=== PATIENT | male | born 1950 | race Caucasian/White ===

== ENCOUNTER 2021-10-03 05:38 | Inpatient (IN) | payer MEDICARE ==
[2021-10-03] MEDS ORDERED: CEFAZOLIN 2 GM-D5W BAG** 2 GM/50 ML ML IV SCH (06:00)
[2021-10-03] MEDS ORDERED: Xylocaine 1% Vial 30 ML PF IJ ONE (06:33)
[2021-10-03] MEDS ORDERED: BUPIVACAINE 0.5% VIAL IJ ONE ×2 (06:33→07:11)
[2021-10-03] MEDS ORDERED: NORCO 5/325 MG PO PRN (08:04)
--- NOTE | 2021-10-03 08:11 | PCM.NOTE ---
Podiatry Post-Op Plan Podiatry Post-Op Plan: Podiatry Post-Op Plan Post-operative plan is as follows: ANTIBIOTICS: Vancomycin 1g q12h, zosyn 3.375g q6h cultures obtained intraoperative will follow up to narrow abx once obtained. PAIN CONTROL: [place] 5/325mg q4h moderate pain. Morphine 2 mg q4h severe pain. Discharge with [place] 5/325mg q6h VTE PROPHYLAXIS: Lovenox 40 mg SubQ daily for anticoag. SCD and compression hose to non op leg. DRESSINGS: Dressing to remain clean and dry. Reinforce with Kerlix/JODY as necessary. ACTIVITY: NWB to operative side. THERAPIES: PT/OT consult for gait training, assistive device training, and assessment of functional status with NWB to the Right. Incentive Spirometry. PLACEMENT: Plan for return to OR tentatively on saturday for DPC and possible muscle Trasnfer. CM consult for evaluation and possible SNF/Rehab placement.
[2021-10-03] MEDS ORDERED: MOTRIN 600 MG PO PRN (08:48)
[2021-10-03] MEDS ORDERED: VASOTEC I.V. 2.5 MG IV PRN (09:51)
[2021-10-03 09:55] LABS: Absolute Neutrophil Ct (ANC) 4.47 (1.4-6.9); BASOPHIL % 0.8 % (0.0-0.4); Basophil (Absolute #) 0.05 (0-0.4); Eosinophil % 6.1 % (0.00-5.0); Eosinophil (Absolute #) 0.38 (0-0.5); Hematocrit 34.9 % (42-50); Lymphocyte (Absolute #) 0.75 (1.0-4.6); Lymphocytes % 12.1 % (24.0-44.0); Mean Cell Volume 89.7 fl (78-100); Mean Corpuscular Hemoglobin 28.3 pg (26-32); Mean Corpuscular Hgb Concent. 31.5 g/dl (32-36); Mean Platelet Volume 11.7 fl (7.5-11.0); Monocyte (Absolute #) 0.57 (0.0-1.3); Monocytes % 9.2 % (0.0-12.0); Neutrophil % 71.8 % (36.0-66.0); Platelet Count 221 K/mm3 (150-450); Red Blood Count 3.89 M/mm3 (4.1-5.6); White Blood Count 6.2 K/mm3 (4.0-10.5)
[2021-10-03] MEDS ORDERED: Ecotrin 325 MG PO SCH (10:00)
[2021-10-03 10:08] LABS: ALBUMIN 4.2 g/dL (3.5-5.0); ALKALINE PHOSPHATASE 74 U/L (38-126); ANION GAP 17.6 MEQ/L (5-15); BLOOD UREA NITROGEN 21 mg/dL (9-20); CHLORIDE 103 mmol/L (98-107); Calcium 9.5 mg/dL (8.4-10.2); Carbon Dioxide 23 mmol/L (22-30); Creatinine 1 1.18 mg/dL (0.66-1.25); EST GLOMERULAR FILTRATION RATE > 60.0 ML/MIN; Glucose 117 mg/dL (74-106); Potassium 5.3 mmol/L (3.5-5.1); SGOT/AST 18 U/L (17-59); SGPT/ALT 13 U/L (0-50); SODIUM 138 mmol/L (137-145); Total Protein 6.6 g/dL (6.3-8.2)
[2021-10-03] MEDS: monoPRIL 10 MG PO SCH (11:34)
[2021-10-03] MEDS: Lopressor 25MG Tab PO SCH ×2 (11:34→21:35)
[2021-10-03] MEDS: SYNTHROID 75 MCG PO SCH (11:36)
[2021-10-03] MEDS: Protonix 40MG Tablet PO SCH (11:36)
[2021-10-03] MEDS: Glucophage XR 500 MG PO SCH ×2 (11:36→21:35)
[2021-10-03] MEDS: ZOCOR 20MG PO SCH (11:36)
[2021-10-03] MEDS: Zosyn 3.375 GM Vial 3.375 GM in Sodium Chloride 100ML MINI-BAG PLUS 100 ML IV SCH ×2 (11:36→17:32)
[2021-10-03] MEDS ORDERED: HUMALOG SQ PRN (12:04)
--- NOTE | 2021-10-03 15:47 | OP ---
SURGERY DATE/TIME: 10/03/2021 0714 PREOPERATIVE DIAGNOSES: 1) Osteomyelitis chronic. 2) Osteomyelitis acute. 3) Diabetic foot infection right foot. 4) Diabetes mellitus type II. POSTOPERATIVE DIAGNOSES: 1) Osteomyelitis chronic. 2) Osteomyelitis acute. 3) Diabetic foot infection right foot. 4) Diabetes mellitus type II. PROCEDURE: Amputation fifth digit and metatarsal amputation of the right foot. SURGEON: Pablo Mayo DPM. JAVA FRONT END WEB DEVELOPER: None. ANESTHESIA: Local. HEMOSTASIS: Pressure dressing. ESTIMATED BLOOD LOSS: Less than 20 cc. MATERIALS: 3-0 Nylon. INJECTABLES: 20 cc of 1:1 mixture of 1% lidocaine plain and 0.5% bupivacaine plain injected in a mini-Leavitt type block fashion. INDICATION FOR SURGERY: Rivas is a very pleasant 71-year-old male who presented to my office for assessment of an ulceration of the fifth metatarsal head. On his initial appointment there was an x-ray that demonstrated significant osteomyelitis of chronic nature with a significant amount of corticolysis and complete erosion of the fifth metatarsal down to the mid diaphyseal shaft as well as the proximal base of the proximal phalanx laterally. Discussion with patient in regards to how long it would take for something to appear this aggressive in the foot demonstrated that the wound had been there for a number of months prior to intervention was seen by another physician who was treating him conservatively. The patient was warned of the potential complications of leaving this wound with the chronic infection could later on result in a larger amputation and possible re-infection of this ulceration whether or not we got the wound resolved. The patient wished to proceed at this time with removing the infected toe as well as the infected portion of the fifth metatarsal. He understands all the risks, benefits and complications of the surgical intervention including but not limited to failure of surgical intervention, delayed wound healing, nonwound healing, possible need for re-intervention in the future which patient understands is part of this procedures plan and indicated at this time and will be staged for a later closure due to the acute infection. The patient understands all of this and wishes to proceed. Following the procedure, the patient will be admitted for IV antibiotics and case management will help to get him into a rehab facility as he has no help at home and is going to have nonweight bearing status to the right foot following his procedure for transportation issues. DESCRIPTION OF PROCEDURE AND FINDINGS: The patient is brought into the OR and placed on the OR table in the supine position. Following this the right lower extremity was prepped and draped to the knee in the typical sterile fashion. Following this 20 cc of a 1:1 mixture of 1% lidocaine plain and 0.5% bupivacaine plain was injected in a mini-Leavitt block type fashion to the right foot. Following this, a 15 blade was utilized to perform a long arm lateral racket around the fifth toe and extending down the base of the fifth metatarsal. The incision was made full thickness for the purpose of vascularity. When incising the skin healthy bleeding was appreciated. At this time the bone was encountered at its proximal extent and disarticulation occurred at the metatarsophalangeal joint and then the soft tissue margins were then cleared of any remaining soft tissue surrounding the proximal aspect of the fifth metatarsal bone. At this point a sagittal saw was utilized to reset the fifth metatarsal base and this was handed off the field along with the fifth digit for microbiological and pathologic assessment. At this time a pulse lavage was utilized to clean the remaining site of any infection or necrosis. Cultures were obtained at this time. Following this a 3-0 Nylon was utilized in a trauma stitch type fashion to coapt the proximal extent and where the fifth toe had been resected leaving a 2 cm gap where packing could be introduced. Betadine soaked 0.25 inch Adaptic was introduced into the deficit and a dressing consisting of Betadine, Adaptic, 4x4, Kerlix and JODY was applied to the right lower extremity under minimal compression. The patient handled the procedure without complication and is planned to be admitted to the floor for IV antibiotics following the procedure and placement into a fpc facility. Postoperative orders as indicated in the patient's inpatient chart.
--- NOTE | 2021-10-03 17:51 | PCM.NOTE ---
Date and Time: 10/03/211748 Subjective Assessment: doing ok - Review of Systems Constitutional: No Fever, No Chills Eyes: No Symptoms Ears, Nose, & Throat: No Symptoms Respiratory: No Cough, No Short Of Breath Cardiac: No Chest Pain, No Edema, No Syncope Abdominal/Gastrointestinal: No Abdominal Pain, No Nausea, No Vomiting, No Diarrhea Genitourinary Symptoms: No Dysuria Musculoskeletal: No Back Pain, No Neck Pain Skin: No Rash Neurological: No Dizziness, No Focal Weakness, No Sensory Changes Psychological: No Symptoms Endocrine: No Symptoms Hematologic/Lymphatic: No Symptoms Immunological/Allergic: No Symptoms Objective Exam General Appearance: no apparent distress, alert Neurologic Exam: alert, oriented x 3, cooperative, normal mood/affect, nml cerebellar function, sensation nml, No motor deficits Skin Exam: normal color, warm, dry Wound Assessment: Skin/Wound Assessment Wound/Incision Assessment Start: 10/03/21 08:51 Text: Status: Active Freq: Q6H Protocol: Document 10/03/21 14:00 RN (Rec: 10/03/21 14:21 RN [id number]) Wound/Incision Assessment Right Foot Wound Assessment Shift Assessment Wound Type Incision Wound Stage Non Pressure Wound Dressing Status Dry & Intact Drainage Amount None Comment Per Dr. Shah's orders- dressing to remain intact until he takes off Wound Photo Photo Taken No Eye Exam: PERRL, EOMI, eyes nml inspection Ears, Nose, Throat Exam: normal ENT inspection, pharynx normal, moist mucous membranes Neck Exam: normal inspection, non-tender, supple, full range of motion Respiratory Exam: normal breath sounds, lungs clear, No respiratory distress Cardiovascular Exam: regular rate/rhythm, normal heart sounds Gastrointestinal/Abdomen Exam: soft, No tenderness, No mass Extremity Exam: normal inspection, normal range of motion Back Exam: normal inspection, normal range of motion, No CVA tenderness, No vertebral tenderness Male Genitalia Exam: deferred Rectal Exam: deferred OBJECTIVE DATA Vital Signs: Vital Signs - 24 hr Temp Pulse Resp BP BP Pulse Ox 10/03/21 17:00 97.9 F 50 L 16 120/56 94 L 10/03/21 11:44 97.5 F 50 L 16 146/67 95 10/03/21 10:02 48 L 183/73 10/03/21 08:35 96.9 F 53 L 16 224/87 98 10/03/21 08:26 96.9 F 53 L 16 98 10/03/21 06:25 97.2 F 57 L 98 10/03/21 06:09 97.2 F 57 L 98 Pain Assessment - Last Documented Pain Intensity 0 Pain Scale Used 0-10 Pain Scale Intake and Output: Intake & Output 10/01/21 10/02/21 10/03/21 10/04/21 11:59 11:59 11:59 11:59 Intake Total 240 380 Output Total 350 Balance -110 380 Weight 69.4 kg 69.4 kg Lab Results: Lab Results-Last 24 Hours 10/03/21 10/03/21 10/03/21 Range/Units 06:28 07:00 08:03 WBC (4.0-10.5) K/mm3 RBC (4.1-5.6) M/mm3 Hgb (12.5-18.0) gm/dl Hct (42-50) % MCV (78-100) fl MCH (26-32) pg MCHC (32-36) g/dl RDW (11.5-14.0) % Plt Count (150-450) K/mm3 MPV (7.5-11.0) fl Gran % (36.0-66.0) % Eos # (Auto) (0-0.5) Absolute Lymphs (auto) (1.0-4.6) Absolute Monos (auto) (0.0-1.3) Lymphocytes % (24.0-44.0) % Monocytes % (0.0-12.0) % Eosinophils % (0.00-5.0) % Basophils % (0.0-0.4) % Absolute Granulocytes (1.4-6.9) Basophils # (0-0.4) ESR 28 H (0-15) mm/hr Sodium (137-145) mmol/L Potassium (3.5-5.1) mmol/L Chloride (98-107) mmol/L Carbon Dioxide (22-30) mmol/L Anion Gap (5-15) MEQ/L BUN (9-20) mg/dL Creatinine (0.66-1.25) mg/dL Estimated GFR ML/MIN Glucose (74-106) mg/dL POC Glucometer 122 H (74 to 106) mg/dL Calcium (8.4-10.2) mg/dL Total Bilirubin (0.2-1.3) mg/dL AST (17-59) U/L ALT (0-50) U/L Alkaline Phosphatase (38-126) U/L Serum Total Protein (6.3-8.2) g/dL Albumin (3.5-5.0) g/dL SARS-CoV-2 (PCR) NEGATIVE (NEGATIVE) 10/03/21 10/03/21 10/03/21 Range/Units 08:15 08:15 16:47 WBC 6.2 (4.0-10.5) K/mm3 RBC 3.89 L (4.1-5.6) M/mm3 Hgb 11.0 L (12.5-18.0) gm/dl Hct 34.9 L (42-50) % MCV 89.7 (78-100) fl MCH 28.3 (26-32) pg MCHC 31.5 L (32-36) g/dl RDW 16.0 H (11.5-14.0) % Plt Count 221 (150-450) K/mm3 MPV 11.7 H (7.5-11.0) fl Gran % 71.8 H (36.0-66.0) % Eos # (Auto) 0.38 (0-0.5) Absolute Lymphs (auto) 0.75 L (1.0-4.6) Absolute Monos (auto) 0.57 (0.0-1.3) Lymphocytes % 12.1 L (24.0-44.0) % Monocytes % 9.2 (0.0-12.0) % Eosinophils % 6.1 H (0.00-5.0) % Basophils % 0.8 (0.0-0.4) % Absolute Granulocytes 4.47 (1.4-6.9) Basophils # 0.05 (0-0.4) ESR (0-15) mm/hr Sodium 138 (137-145) mmol/L Potassium 5.3 H (3.5-5.1) mmol/L Chloride 103 (98-107) mmol/L Carbon Dioxide 23 (22-30) mmol/L Anion Gap 17.6 H (5-15) MEQ/L BUN 21 H (9-20) mg/dL Creatinine 1.18 (0.66-1.25) mg/dL Estimated GFR > 60.0 ML/MIN Glucose 117 H (74-106) mg/dL POC Glucometer 161 H (74 to 106) mg/dL Calcium 9.5 (8.4-10.2) mg/dL Total Bilirubin 0.30 (0.2-1.3) mg/dL AST 18 (17-59) U/L ALT 13 (0-50) U/L Alkaline Phosphatase 74 (38-126) U/L Serum Total Protein 6.6 (6.3-8.2) g/dL Albumin 4.2 (3.5-5.0) g/dL SARS-CoV-2 (PCR) (NEGATIVE) Multi-Disciplinary Progress Notes: Multi-Disciplinary Progress Notes 10/03/21 12:52 Case Management Note by Laura Hilton PATIENT TO CALL FRIEND TO SEE IF THEY CAN BRING IN HIS KNEE SCOOTER TO PRACTICE WITH HERE AT [facility] PRIOR TO DC Initialized on 10/03/21 12:52 - END OF NOTE Assessment/Plan (1) Type 2 diabetes mellitus Current Visit: Yes Status: Acute Qualifiers: Diabetes mellitus director long term care insulin use: without nursing home use Diabetes mellitus complication status: with hyperglycemia Qualified Code(s): E11.65 - Type 2 diabetes mellitus with hyperglycemia (2) Hypertension Current Visit: Yes Status: Acute Qualifiers: Hypertension type: primary hypertension Qualified Code(s): I10 - Essential (primary) hypertension Code(s): I10 - ESSENTIAL (PRIMARY) HYPERTENSION
[2021-10-03] MEDS: Lantus Insulin SQ SCH (21:33)
[2021-10-03] MEDS ORDERED: NON-FORMULARY ITEM (Metformin Hcl [Metformin Er Osmotic] 1,000 MG Tab.Er.24) PO SCH (22:00)
[2021-10-04] MEDS: Zosyn 3.375 GM Vial 3.375 GM in Sodium Chloride 100ML MINI-BAG PLUS 100 ML IV SCH ×5 (00:25→23:56)
--- NOTE | 2021-10-04 08:28 | PCM.NOTE ---
Date and Time: 10/04/21827 Subjective Assessment: doing better - Review of Systems Constitutional: No Fever, No Chills Eyes: No Symptoms Ears, Nose, & Throat: No Symptoms Respiratory: No Cough, No Short Of Breath Cardiac: No Chest Pain, No Edema, No Syncope Abdominal/Gastrointestinal: No Abdominal Pain, No Nausea, No Vomiting, No Diarrhea Genitourinary Symptoms: No Dysuria Musculoskeletal: No Back Pain, No Neck Pain Skin: No Rash Neurological: No Dizziness, No Focal Weakness, No Sensory Changes Psychological: No Symptoms Endocrine: No Symptoms Hematologic/Lymphatic: No Symptoms Immunological/Allergic: No Symptoms Objective Exam General Appearance: no apparent distress, alert Neurologic Exam: alert, oriented x 3, cooperative, normal mood/affect, nml cerebellar function, sensation nml, No motor deficits Skin Exam: normal color, warm, dry Wound Assessment: Skin/Wound Assessment Wound/Incision Assessment Start: 10/03/21 08:51 Text: Status: Active Freq: Q6H Protocol: Document 10/04/21 07:30 RN (Rec: 10/04/21 07:34 RN [id number]) Wound/Incision Assessment Right Foot Wound Assessment Shift Assessment Wound Type Incision Wound Stage Non Pressure Wound Dressing Status Dry & Intact Drainage Amount None Comment Surgical dressing still clean, dry, and intact-not to be removed per Dr. Shah's orders Wound Photo Photo Taken No Eye Exam: PERRL, EOMI, eyes nml inspection Ears, Nose, Throat Exam: normal ENT inspection, pharynx normal, moist mucous membranes Neck Exam: normal inspection, non-tender, supple, full range of motion Respiratory Exam: normal breath sounds, lungs clear, No respiratory distress Cardiovascular Exam: regular rate/rhythm, normal heart sounds Gastrointestinal/Abdomen Exam: soft, No tenderness, No mass Extremity Exam: normal inspection, normal range of motion Back Exam: normal inspection, normal range of motion, No CVA tenderness, No vertebral tenderness Male Genitalia Exam: deferred Rectal Exam: deferred OBJECTIVE DATA Vital Signs: Vital Signs - 24 hr Temp Pulse Resp BP Pulse Ox 10/04/21 07:40 97.7 F 62 16 160/71 94 L 10/04/21 04:20 99.8 F 56 L 20 135/62 95 10/03/21 23:00 98.9 F 57 L 18 153/67 97 10/03/21 17:00 97.9 F 50 L 16 120/56 94 L 10/03/21 11:44 97.5 F 50 L 16 146/67 95 10/03/21 10:02 48 L 183/73 10/03/21 08:35 96.9 F 53 L 16 224/87 98 Pain Assessment - Last Documented Pain Intensity 0 Pain Scale Used 0-10 Pain Scale Intake and Output: Intake & Output 10/01/21 10/02/21 10/03/21 10/04/21 11:59 11:59 11:59 11:59 Intake Total 240 1160 Output Total 350 500 Balance -110 660 Weight 69.4 kg 69.4 kg Lab Results: Lab Results-Last 24 Hours 10/03/21 10/03/21 10/03/21 Range/Units 08:03 08:15 08:15 WBC 6.2 (4.0-10.5) K/mm3 RBC 3.89 L (4.1-5.6) M/mm3 Hgb 11.0 L (12.5-18.0) gm/dl Hct 34.9 L (42-50) % MCV 89.7 (78-100) fl MCH 28.3 (26-32) pg MCHC 31.5 L (32-36) g/dl RDW 16.0 H (11.5-14.0) % Plt Count 221 (150-450) K/mm3 MPV 11.7 H (7.5-11.0) fl Gran % 71.8 H (36.0-66.0) % Eos # (Auto) 0.38 (0-0.5) Absolute Lymphs (auto) 0.75 L (1.0-4.6) Absolute Monos (auto) 0.57 (0.0-1.3) Lymphocytes % 12.1 L (24.0-44.0) % Monocytes % 9.2 (0.0-12.0) % Eosinophils % 6.1 H (0.00-5.0) % Basophils % 0.8 (0.0-0.4) % Absolute Granulocytes 4.47 (1.4-6.9) Basophils # 0.05 (0-0.4) ESR 28 H (0-15) mm/hr Sodium 138 (137-145) mmol/L Potassium 5.3 H (3.5-5.1) mmol/L Chloride 103 (98-107) mmol/L Carbon Dioxide 23 (22-30) mmol/L Anion Gap 17.6 H (5-15) MEQ/L BUN 21 H (9-20) mg/dL Creatinine 1.18 (0.66-1.25) mg/dL Estimated GFR > 60.0 ML/MIN Glucose 117 H (74-106) mg/dL POC Glucometer (74 to 106) mg/dL Calcium 9.5 (8.4-10.2) mg/dL Total Bilirubin 0.30 (0.2-1.3) mg/dL AST 18 (17-59) U/L ALT 13 (0-50) U/L Alkaline Phosphatase 74 (38-126) U/L Serum Total Protein 6.6 (6.3-8.2) g/dL Albumin 4.2 (3.5-5.0) g/dL 10/03/21 10/03/21 10/04/21 Range/Units 16:47 20:51 07:10 WBC (4.0-10.5) K/mm3 RBC (4.1-5.6) M/mm3 Hgb (12.5-18.0) gm/dl Hct (42-50) % MCV (78-100) fl MCH (26-32) pg MCHC (32-36) g/dl RDW (11.5-14.0) % Plt Count (150-450) K/mm3 MPV (7.5-11.0) fl Gran % (36.0-66.0) % Eos # (Auto) (0-0.5) Absolute Lymphs (auto) (1.0-4.6) Absolute Monos (auto) (0.0-1.3) Lymphocytes % (24.0-44.0) % Monocytes % (0.0-12.0) % Eosinophils % (0.00-5.0) % Basophils % (0.0-0.4) % Absolute Granulocytes (1.4-6.9) Basophils # (0-0.4) ESR (0-15) mm/hr Sodium (137-145) mmol/L Potassium (3.5-5.1) mmol/L Chloride (98-107) mmol/L Carbon Dioxide (22-30) mmol/L Anion Gap (5-15) MEQ/L BUN (9-20) mg/dL Creatinine (0.66-1.25) mg/dL Estimated GFR ML/MIN Glucose (74-106) mg/dL POC Glucometer 161 H 112 H 105 (74 to 106) mg/dL Calcium (8.4-10.2) mg/dL Total Bilirubin (0.2-1.3) mg/dL AST (17-59) U/L ALT (0-50) U/L Alkaline Phosphatase (38-126) U/L Serum Total Protein (6.3-8.2) g/dL Albumin (3.5-5.0) g/dL Multi-Disciplinary Progress Notes: Multi-Disciplinary Progress Notes 10/03/21 12:52 Case Management Note by Laura Hilton PATIENT TO CALL FRIEND TO SEE IF THEY CAN BRING IN HIS KNEE SCOOTER TO PRACTICE WITH HERE AT [facility] PRIOR TO DC Initialized on 10/03/21 12:52 - END OF NOTE Assessment/Plan (1) Type 2 diabetes mellitus Current Visit: Yes Status: Acute Qualifiers: Diabetes mellitus snf insulin use: without snf use Diabetes mellitus complication status: with hyperglycemia Qualified Code(s): E11.65 - Type 2 diabetes mellitus with hyperglycemia (2) Hypertension Current Visit: Yes Status: Acute Qualifiers: Hypertension type: primary hypertension Qualified Code(s): I10 - Essential (primary) hypertension Code(s): I10 - ESSENTIAL (PRIMARY) HYPERTENSION
[2021-10-04] MEDS ORDERED: VANCOMYCIN 1 GRAM/200 ML BAG 1 GM/200 ML PIGGYBACK IV SCH (08:30)
[2021-10-04] MEDS: ENOXAPARIN SODIUM SQ SCH (09:35)
[2021-10-04] MEDS: Lopressor 25MG Tab PO SCH ×2 (09:36→21:32)
[2021-10-04] MEDS: Glucophage XR 500 MG PO SCH ×2 (09:36→21:32)
[2021-10-04] MEDS: ZOCOR 20MG PO SCH (09:36)
[2021-10-04] MEDS: SYNTHROID 75 MCG PO SCH (09:36)
[2021-10-04] MEDS: VANCOMYCIN 1.25 GM/250 ML BAG 1.25 GM/250 ML PIGGYBACK IV SCH (09:36)
[2021-10-04] MEDS: Protonix 40MG Tablet PO SCH (09:36)
--- NOTE | 2021-10-04 09:38 | XRAY ---
Indication: Postop exam. Comparison: September 06, 2021. 3 nonweightbearing views right foot demonstrates interval amputation entire 5th toe and mid to distal 5th metatarsal with overlying bandage material. Stable osteopenia, tiny heel spurs, and scattered vascular calcifications. No other bony, articular, or soft tissue abnormalities.
[2021-10-04] MEDS ORDERED: FOSINOPRIL SODIUM 20 MG PO SCH (10:00)
[2021-10-04] MEDS ORDERED: LEVOTHYROXINE SODIUM 75 MCG PO SCH (10:00)
[2021-10-04] MEDS ORDERED: NON-FORMULARY ITEM (Atorvastatin Calcium [Atorvastatin Calcium] 20 MG Tablet) PO SCH (10:00)
[2021-10-04] MEDS ORDERED: NON-FORMULARY ITEM (Omeprazole [Omeprazole] 20 MG Capsule.Dr) PO SCH (10:00)
[2021-10-04] MEDS: monoPRIL 10 MG PO SCH (12:11)
--- NOTE | 2021-10-04 16:15 | PCM.NOTE ---
Date and Time: 10/04/211608 Subjective Assessment: Patient is postop day #1 status post fifth metatarsal amputation and fifth toe amputation to the right foot. Resting comfortably at bedside this afternoon with minimal complaints. He denies any pain. He denies any constitutional symptoms of infection. He denies any other pedal complaints at this time Physical Exam - General General Appearance: no apparent distress, alert - Neuro Neurologic: Other (Absent epicritic and protopathic sensations to the bilateral lower extremity secondary to peripheral neuropathy) - Vascular Peripheral Pulses: Posterior tibialis: 2+, Dorsalis-Pedis: 0 Capillary Refill Time: Immediate Varicosities: Positive Edema: None Skin Temperature: Warm to touch - Muscular Foot Type: pes planu Muscle Strength: 5/5 on all 4 quadrants - Narrative Narrative Physical Exam: Podiatry Physical Exam : Dermatological incision at lateral aspect of right foot coapted utilizing over and over stitches to the proximal extent and distal extent at fifth digit amputation no residual signs of infection at this time with packing pulled. Skin edges blanchable Musculoskeletal exam largely deferred however status post amputation to the right foot lateral aspect fifth digit and proximal aspect of fifth metatarsal. Without pain. Wiggles toes. No calf pain on compression. OBJECTIVE DATA Vital Signs: Vital Signs - 24 hr Temp Pulse Resp BP Pulse Ox 10/04/21 07:40 97.7 F 62 16 160/71 94 L 10/04/21 04:20 99.8 F 56 L 20 135/62 95 10/03/21 23:00 98.9 F 57 L 18 153/67 97 10/03/21 17:00 97.9 F 50 L 16 120/56 94 L Pain Assessment - Last Documented Pain Intensity 0 Pain Scale Used 0-10 Pain Scale Intake and Output: Intake & Output 10/02/21 10/03/21 10/04/21 10/05/21 11:59 11:59 11:59 11:59 Intake Total 240 1400 240 Output Total 350 500 Balance -110 900 240 Weight 69.4 kg 69.4 kg Lab Results: Lab Results-Last 24 Hours 10/03/21 10/03/21 10/03/21 Range/Units 09:00 16:47 20:51 POC Glucometer 161 H 112 H (74 to 106) mg/dL C-Reactive Prot, Quant 1 (0-10) mg/L 10/04/21 10/04/21 Range/Units 07:10 11:49 POC Glucometer 105 144 H (74 to 106) mg/dL C-Reactive Prot, Quant (0-10) mg/L Radiology Exams: Radiology Procedures Category Date Time Status CHEST 1 VIEW (PORTABLE) Urgent Exams 10/04/21 13:32 Taken FOOT (MINIMUM 3 VIEWS) Routine Exams 10/04/21 Completed Multi-Disciplinary Progress Notes: Multi-Disciplinary Progress Notes 10/04/21 13:51 Case Management Note by Laura Hilton S/W PATIENT- HE DOES NOT HAVE ANYONE TO BRING IN HIS KNEE SCOOTER FROM HOME. HE WAS INITIALLY RESISTANT TO REHAB STAY. HOWEVER AFTER PATIENT S/W DR. CARPENTER- PATIENT AGREEABLE. PATIENT HAS NO ASSISTANCE AT HOME, LIVES ALONE, HAS NO LOCAL TRANSPORTATION WHILE RECOVERING. PATIENT WOULD LIKE TO TRY TO GO TO [place] AT [place]. WILL SEND REFERRAL Initialized on 10/04/21 13:51 - END OF NOTE 10/04/21 09:08 Pharmacy Note by Grzegorz Staples Vancomycin dose adjusted per renal dosing policy. Will check trough on 10-07 and adjust dose if needed. Initialized on 10/04/21 09:08 - END OF NOTE Assessment/Plan (1) Osteomyelitis due to type 2 diabetes mellitus Current Visit: Yes Status: Acute Assessment & Plan: Patient examination evaluation. Radiographs reviewed and discussed with patient demonstrating interval amputat ion of the fifth digit as well as the fifth metatarsal to proximal one third diaphysis. Clinical examination today reveals a clean surgical site with out any evidence of remaining infection or necrosis at the skin margins. Patient to continue empiric antibiotic therapy at this time and will narrow spectrum once intraoperative cultures have been finalized Continue postoperative protocol at this time. Plan for return to OR on Saturday, October 06, 2021 for repeat incision and drainage bone debridement muscle flap as well as delayed primary closure Nonweightbearing to the right lower extremity Continue working with case management for discharge to nursing facility Code(s): E11.69 - TYPE 2 DIABETES MELLITUS WITH OTHER SPECIFIED COMPLICATION; M86.9 - OSTEOMYELITIS, UNSPECIFIED (2) Diabetic foot ulcer associated with type 2 diabetes mellitus Current Visit: Yes Status: Acute Qualifiers: Non-pressure ulcer stage: with necrosis of bone Code(s): E11.621 - TYPE 2 DIABETES MELLITUS WITH FOOT ULCER; L97.509 - NON- PRESSURE CHRONIC ULCER OTH PRT UNSP FOOT W UNSP SEVERITY (3) Peripheral neuropathy Current Visit: Yes Status: Acute Qualifiers: Peripheral neuropathy type: polyneuropathy associated with underlying disease Qualified Code(s): G63 - Polyneuropathy in diseases classified elsewhere Code(s): G62.9 - POLYNEUROPATHY, UNSPECIFIED
[2021-10-04] MEDS: Lantus Insulin SQ SCH (21:32)
[2021-10-05] MEDS: Zosyn 3.375 GM Vial 3.375 GM in Sodium Chloride 100ML MINI-BAG PLUS 100 ML IV SCH ×4 (05:33→23:40)
[2021-10-05 05:52] LABS: Creatinine 1 1.4 mg/dL (0.66-1.25); EST GLOMERULAR FILTRATION RATE 53.3 ML/MIN
--- NOTE | 2021-10-05 08:12 | XRAY ---
Indication: longterm placement. Comparison: None Portable chest hyperinflated and clear. Heart borderline enlarged. Bony thorax intact with mild osteopenia and degenerative changes. Impression: Borderline cardiomegaly. Negative for acute pneumonic process or CHF.
--- NOTE | 2021-10-05 08:22 | PCM.NOTE ---
Date and Time: 10/05/21820 - Review of Systems Constitutional: No Fever, No Chills Eyes: No Symptoms Ears, Nose, & Throat: No Symptoms Respiratory: No Cough, No Short Of Breath Cardiac: No Chest Pain, No Edema, No Syncope Abdominal/Gastrointestinal: No Abdominal Pain, No Nausea, No Vomiting, No Diarrhea Genitourinary Symptoms: No Dysuria Musculoskeletal: No Back Pain, No Neck Pain Skin: No Rash Neurological: No Dizziness, No Focal Weakness, No Sensory Changes Psychological: No Symptoms Endocrine: No Symptoms Hematologic/Lymphatic: No Symptoms Immunological/Allergic: No Symptoms Objective Exam General Appearance: no apparent distress, alert Neurologic Exam: alert, oriented x 3, cooperative, normal mood/affect, nml cerebellar function, sensation nml, No motor deficits Skin Exam: normal color, warm, dry Wound Assessment: Skin/Wound Assessment Wound/Incision Assessment Start: 10/03/21 08:51 Text: Status: Active Freq: Q6H Protocol: Document 10/05/21 07:44 RN (Rec: 10/05/21 07:47 RN [id number]) Wound/Incision Assessment Right Foot Wound Assessment Shift Assessment Wound Type Incision Wound Stage Non Pressure Wound Dressing Status Dry & Intact Drainage Amount None Comment Surgical dressing still clean, dry, and intact-not to be removed per Dr. Shah's orders. Some swelling noted to toes on right foot this AM Wound Photo Photo Taken No Eye Exam: PERRL, EOMI, eyes nml inspection Ears, Nose, Throat Exam: normal ENT inspection, pharynx normal, moist mucous membranes Neck Exam: normal inspection, non-tender, supple, full range of motion Respiratory Exam: normal breath sounds, lungs clear, No respiratory distress Cardiovascular Exam: regular rate/rhythm, normal heart sounds Gastrointestinal/Abdomen Exam: soft, No tenderness, No mass Extremity Exam: normal inspection, normal range of motion Back Exam: normal inspection, normal range of motion, No CVA tenderness, No vertebral tenderness Male Genitalia Exam: deferred Rectal Exam: deferred OBJECTIVE DATA Vital Signs: Vital Signs - 24 hr Temp Pulse Resp BP Pulse Ox 10/05/21 04:00 98.8 F 57 L 15 138/63 96 10/05/21 00:00 98.6 F 61 16 154/70 94 L 10/04/21 20:00 98.6 F 67 16 173/70 96 10/04/21 16:31 97.8 F 62 16 179/81 97 Pain Assessment - Last Documented Pain Intensity 0 Pain Scale Used 0-10 Pain Scale Intake and Output: Intake & Output 10/02/21 10/03/21 10/04/21 10/05/21 11:59 11:59 11:59 11:59 Intake Total 240 1400 1190 Output Total 350 500 400 Balance -110 900 790 Weight 69.4 kg 69.4 kg Lab Results: Lab Results-Last 24 Hours 10/03/21 10/04/21 10/04/21 Range/Units 09:00 11:49 16:07 Creatinine (0.66-1.25) mg/dL Estimated GFR ML/MIN POC Glucometer 144 H 97 (74 to 106) mg/dL C-Reactive Prot, Quant 1 (0-10) mg/L 10/04/21 10/05/21 10/05/21 Range/Units 21:12 04:48 07:21 Creatinine 1.40 H (0.66-1.25) mg/dL Estimated GFR 53.3 ML/MIN POC Glucometer 117 H 59 L (74 to 106) mg/dL C-Reactive Prot, Quant (0-10) mg/L Radiology Exams: Radiology Procedures Category Date Time Status CHEST 1 VIEW (PORTABLE) Urgent Exams 10/04/21 13:32 Completed FOOT (MINIMUM 3 VIEWS) Routine Exams 10/04/21 Completed Multi-Disciplinary Progress Notes: Multi-Disciplinary Progress Notes 10/04/21 16:42 Physical Therapy Note by Janessa/lic.[id number] PT. REPORTS NO C/O PN IN L FOOT TODAY. REVIEWED NWB STATUS L LE COST ESTIMATING CLERK REPORTED THAT HE WANTED TO AMBULATE TO BATHROOM VS BEDSIDE COMMODE AND HE HAD DIFFICULTY MAINTAINING NWB STATUS L LE. PT. PERFORMED BED MOBILITY W/ CGA-SBA. STAND- PIVOT TRANSFER TO R W/ MIN-0MOD ASSIST X 1 NWB L LE W/ SW. PIVOT TRANSFER TO L W/ MIN ASSIST X 1. PT. PERFORMED SEATED LE EX'S X 10 REPS SLRS, R ANKLE PUMPS, HEEL SLIDES, AND SUPINE HIP ABD. NO INCREASED PN W/ AROM EX'S L LE. PLAN IS TO RETURN TO [facility] ON 10/06/21 AND THEN D/C HOME W/ HHC. Initialized on 10/04/21 16:42 - END OF NOTE 10/04/21 13:51 Case Management Note by Laura Hilton S/W PATIENT- HE DOES NOT HAVE ANYONE TO BRING IN HIS KNEE SCOOTER FROM HOME. HE WAS INITIALLY RESISTANT TO REHAB STAY. HOWEVER AFTER PATIENT S/W DR. CARPENTER- PATIENT AGREEABLE. PATIENT HAS NO ASSISTANCE AT HOME, LIVES ALONE, HAS NO LOCAL TRANSPORTATION WHILE RECOVERING. PATIENT WOULD LIKE TO TRY TO GO TO [facility] [place]. WILL SEND REFERRAL Initialized on 10/04/21 13:51 - END OF NOTE 10/04/21 09:08 Pharmacy Note by Grzegorz Staples Vancomycin dose adjusted per renal dosing policy. Will check trough on 10-07 and adjust dose if needed. Initialized on 10/04/21 09:08 - END OF NOTE Assessment/Plan (1) Type 2 diabetes mellitus Current Visit: Yes Status: Acute Qualifiers: Diabetes mellitus custodial insulin use: without termite treater helper use Diabetes mellitus complication status: with hyperglycemia Qualified Code(s): E11.65 - Type 2 diabetes mellitus with hyperglycemia (2) Hypertension Current Visit: Yes Status: Acute Qualifiers: Hypertension type: primary hypertension Qualified Code(s): I10 - Essential (primary) hypertension Code(s): I10 - ESSENTIAL (PRIMARY) HYPERTENSION
[2021-10-05] MEDS: VANCOMYCIN 1.25 GM/250 ML BAG 1.25 GM/250 ML PIGGYBACK IV SCH (09:35)
[2021-10-05] MEDS: monoPRIL 10 MG PO SCH (09:36)
[2021-10-05] MEDS: ENOXAPARIN SODIUM SQ SCH (09:36)
[2021-10-05] MEDS: Protonix 40MG Tablet PO SCH (09:36)
[2021-10-05] MEDS: SYNTHROID 75 MCG PO SCH (09:37)
[2021-10-05] MEDS: Lopressor 25MG Tab PO SCH ×2 (09:37→22:49)
[2021-10-05] MEDS: ZOCOR 20MG PO SCH (09:37)
[2021-10-05] MEDS: Glucophage XR 500 MG PO SCH ×2 (11:42→22:50)
[2021-10-05] MEDS: Lantus Insulin SQ SCH (22:50)
[2021-10-06] MEDS: Zosyn 3.375 GM Vial 3.375 GM in Sodium Chloride 100ML MINI-BAG PLUS 100 ML IV SCH ×3 (05:59→17:53)
[2021-10-06 06:06] LABS: Creatinine 1 1.22 mg/dL (0.66-1.25); EST GLOMERULAR FILTRATION RATE > 60.0 ML/MIN
[2021-10-06] MEDS ORDERED: XYLOCAINE 1% HCL 20 ML MDV ONE (06:24)
[2021-10-06] MEDS ORDERED: BUPIVACAINE 0.5% VIAL IJ ONE (06:24)
[2021-10-06] MEDS ORDERED: Sodium Chloride 0.9% 1000 ML 1,000 ML ONE ×2 (06:24→07:26)
[2021-10-06] MEDS: VANCOMYCIN 1.25 GM/250 ML BAG 1.25 GM/250 ML PIGGYBACK IV SCH (09:43)
[2021-10-06] MEDS: ENOXAPARIN SODIUM SQ SCH (09:43)
[2021-10-06] MEDS: Glucophage XR 500 MG PO SCH ×2 (09:44→20:46)
[2021-10-06] MEDS: ZOCOR 20MG PO SCH (09:44)
[2021-10-06] MEDS: Lopressor 25MG Tab PO SCH ×2 (09:44→20:46)
[2021-10-06] MEDS: SYNTHROID 75 MCG PO SCH (09:44)
[2021-10-06] MEDS: monoPRIL 10 MG PO SCH (09:44)
[2021-10-06] MEDS: Protonix 40MG Tablet PO SCH (09:44)
--- NOTE | 2021-10-06 14:16 | OP ---
SURGERY DATE/TIME: 10/06/2021 0833 PREOPERATIVE DIAGNOSES: 1) Acute osteomyelitis. 2) Chronic osteomyelitis. 3) Diabetic foot infection. 4) Diabetes mellitus type II. POSTOPERATIVE DIAGNOSES: 1) Acute osteomyelitis. 2) Chronic osteomyelitis. 3) Diabetic foot infection. 4) Diabetes mellitus type II. PROCEDURES: 1) Repeat incision and drainage with bone debridement. 2) Metatarsal osteotomy. 3) Abductor digiti minimi muscle transfer. 4) Delayed primary closure. SURGEON: Pablo Mayo DPM. MANAGER METROLOGY: None. ANESTHESIA: Local. HEMOSTASIS: Pressure dressing. ESTIMATED BLOOD LOSS: Less than 20 cc. MATERIALS: Bactisure 1,000 ml, [employer], 2-0 Vicryl, 3-0 Nylon. INJECTABLES: 20 cc of 1:1 mixture of 1% lidocaine plain and 0.5% bupivacaine plain injected in a mini-Leavitt type block to the right lower extremity. INDICATION FOR SURGERY: Rivas is a very pleasant 71-year-old male who presented to my office initially with complaints of an ulceration on the lateral aspect of the fifth metatarsal head. X-rays were taken demonstrating significant chronic osteomyelitic changes as well as purulent abscess that was acute in nature at that time. The patient agreed to proceed with surgical incision and drainage of the right foot in order to prevent this from becoming problematic in the future as there has been evidence of destructive changes to the bone as well as the soft tissue surrounding. The patient understands all risks, benefits and complications of the procedure at this time and wishes to proceed. He has already had initial incision and drainage of the abscess prior to this intervention and has been left open for several days prior to returning to the OR as initially intended to proceed with the current operation. DESCRIPTION OF PROCEDURE AND FINDINGS: The patient is brought into the OR and placed on the OR table in supine position. At this time, the right lower extremity was prepped and draped in typical sterile fashion. At this time a 15 blade was utilized to remove the trauma stitches to the lateral aspect of the right foot. Incision was then deepened once again cleaning any sign with blunt and sharp dissection of necrosis or infection. At this time the proximal bone was identified again and a bone rongeur was utilized to remove bone that appeared to be devitalized and necrotic. At this time, sagittal saw was utilized to remove a proximal portion of this space and this was handed off the field for clean margins. At this time attention was then directed to the incision site where copious amounts of Bactisure 1,000 ml was utilized to clean the surgical site and then a 1,000 ml bag of sterile saline was then utilized to flush the site of the acetate. At this time the abductor digiti minimi muscle was identified and mobilized this was then sutured to the periosteum of the remaining proximal fifth metatarsal base. Following this 2-0 Vicryl was then utilized to coapt the surgical site. Skin edges and then 3-0 Nylon was utilized in a horizontal mattress and suture stitch alternating pattern in order to close the surgical wound. At this time the leg was then cleansed with sterile saline. A dressing consisting of Betadine, Adaptic, 4x4, Kerlix and JODY were applied to the right lower extremity. The patient was brought to the postoperative anesthesia care unit with vital signs stable and vascular status intact. The patient handled the procedure as well as the anesthesia without complication. Postoperative orders as indicated in the patient's chart.
[2021-10-06] MEDS: Lantus Insulin SQ SCH (20:45)
[2021-10-07] MEDS: Zosyn 3.375 GM Vial 3.375 GM in Sodium Chloride 100ML MINI-BAG PLUS 100 ML IV SCH ×5 (01:05→23:31)
--- NOTE | 2021-10-07 07:32 | PCM.NOTE ---
Date and Time: 10/07/21729 Subjective Assessment: Patient seen postop day 1 status post repeat incision and drainage bone debridement partial metatarsal amputation abductor digiti minimi muscle transfer and delayed primary closure. Patient sitting in recliner comfortably this a.m. without any overt complaints. Patient is in good mood. He denies any con stitutional symptoms of infection. He denies any other pedal complaints at this time. Physical Exam - Narrative Narrative Physical Exam: Podiatry Physical Exam: Dressings left clean dry and intact status post delayed primary closure at this time. No strikethrough on primary or secondary dressings at this time. Slightly disheveled due to bed rest. Physical exam will be performed on next postoperative visit to avoid iatrogenic infection in the hospital. No dressing changes at this time OBJECTIVE DATA Vital Signs: Vital Signs - 24 hr Temp Pulse Resp BP Pulse Ox 10/07/21 04:34 98.0 F 63 18 158/76 95 10/06/21 23:56 97.7 F 68 18 141/66 96 10/06/21 19:14 97.8 F 63 18 167/73 97 10/06/21 16:17 96.9 F 58 L 16 160/72 97 10/06/21 11:13 97.1 F 59 L 16 114/65 100 10/06/21 09:42 96.0 F 60 16 174/75 99 10/06/21 08:07 97.7 F 55 L 16 161/75 97 Pain Assessment - Last Documented Pain Intensity 0 Pain Scale Used 0-10 Pain Scale Intake and Output: Intake & Output 10/04/21 10/05/21 10/06/21 10/07/21 11:59 11:59 11:59 11:59 Intake Total 1400 1650 2206 1468 Output Total 500 400 Balance 900 1250 2206 1468 Weight 69.4 kg 69.4 kg Lab Results: Lab Results-Last 24 Hours 10/03/21 10/06/21 10/06/21 Range/Units 07:37 11:07 16:02 POC Glucometer 181 H 151 H (74 to 106) mg/dL Surg PTH Diagnosis See Note H 10/06/21 Range/Units 20:35 POC Glucometer 200 H (74 to 106) mg/dL Surg PTH Diagnosis Radiology Exams: Radiology Procedures Category Date Time Status PICC LINE PLACEMENT Urgent Exams 10/09/21 00:00 Ordered Multi-Disciplinary Progress Notes: Multi-Disciplinary Progress Notes 10/06/21 16:18 Physical Therapy Note by Jessica Valentin PHYSICAL THERAPIST ATTEMPTED TO SEE PATIENT TWO TIMES EARLIER TODAY BUT PT REQUESTED BOTH TIMES TO COME BACK LATER. HE HAD SURGERY EARLY THIS MORNING. PT WAS SEEN LATE THIS PM SITTING UP IN HIS CHAIR. HE NOTED HE IS ABLE TO HOP NWB ON THE R LE WITH WALKER BACK AND FOURTH FROM THE BED TO THE BATHROOM. HE NOTES HE ISN'T SUPPOSE TO BE UP INDEPENDENTLY, BUT NOTES HE HAS BEEN. HE DENIES FEELING UNSAFE OR LOSING HIS BALANCE. PT WAS ABLE TO DO SOME SITTING EXERCISES FOR B LE, 10 REPS EACH. PT WAS TOLD TO DO LEG RAISES, KNEE BENDS AND ANKLE PUMPS WHEN IN BED. HE NOTES HE MAY BE HERE IN THE HOSPITAL UNTIL SATURDAY. Initialized on 10/06/21 16:18 - END OF NOTE 10/06/21 15:07 Nutrition Note by Autumn Jeffrey F/u Note: Diet increased to 1800CC with 75-100% po intake. glu 181, adm weight 69.853kg; current weight 69.4kg. goal of po intake >=75% met and ongoing; goal of flu wnl not met and ongoing. Recommend to con't with current diet. Will con't to monitor and f/u prn. T.DENNY Jeffrey Initialized on 10/06/21 15:07 - END OF NOTE 10/06/21 14:03 Case Management Note by Laura Hilton DR.'S NURSE JENNYFER CALLED- HE REVIEWED CULTURES. NEW ORDERS FOR PICC LINE PLACEMENT. ALSO AT DC TO [place] PATIENT WILL NEED TO BE ON [facility] IV [facility]ARMACY TO DOSE FOR 6 WEEKS STARTING FROM 10/04/21, AT [place] TO [place] [facility] (CONTINUE UNTIL THEN). CALLED THIS INFORMATION TO [facility] SO THEY CHECK PRICING AND HOPEFULLY START PRECERT TODAY OR SATURDAY. HOPEFUL FOR DC TO [place] BY MID WEEK NEXT WEEK PATIENT UPDATED ON STATUS AT THIS TIME- AWARE HE WILL LIKELY BE HERE UNTIL MID WEEK NEXT WEEK. PATIENT DOES NOT HAVE ANY TRANSPORTATION FOR OTPT ANTIBIOTIC INFUSIONS. Initialized on 11/19/21 14:03 - END OF NOTE Assessment/Plan (1) Osteomyelitis due to type 2 diabetes mellitus Current Visit: Yes Status: Acute Assessment & Plan: Patient examination evaluation. Radiographs reviewed and discussed with patient demonstrating interval amputation of the fifth digit as well as the fifth metatarsal to proximal one third diaphysis. Patient is progressing without complication status post repeat incision and drainage and bone debridement, partial metatarsal osteotomy abductor digiti minimi muscle transfer and delayed primary closure. Patient has voiced his understanding of the postoperative course at this time. However he does have some hesitations about going to a detention. Preliminary soft tissue culture demonstrating gram-positive cocci. At this time we will discontinue Zosyn 3.375 g every 8 hours and continue the vancomycin 1.25 every 12 hours. Pathological assessment demonstrates no acute osteomyelitis however chronic osteomyelitis is still of concern with no inflammatory process noted. At this time we will proceed with 2 weeks of intravenous antibiotics instead of the 6 weeks as originally anticipated because we are treating chronic osteomyelitis with current soft tissue infection. Awaiting final surgical pathology with clean margins obtained yesterday for final say of 2 weeks versus 6. Patient has made it abundantly clear that he is not interested in going to a nursing facility at this time and would like to proceed with home health care if possible. We will attempt from my office his standpoint to get patient set up with home IV infusions and home health care for dressing changes after the first postoperative week. Patient agrees to this protocol at this time. Patient to remain nonweightbearing to the right lower extremity. On discharge she has his knee scooter for ambulatory assistance. [place] 03/20/2025 every 6 hours for postoperative pain. DVT prophylaxis enoxaparin inpatient. Aspirin 325 mg p.o. daily on discharge. Case management: Patient indecisive however at this time would like to go home. Will attempt home health care and home IV infusions. We will follow Code(s): E11.69 - TYPE 2 DIABETES MELLITUS WITH OTHER SPECIFIED COMPLICATION; M86.9 - OSTEOMYELITIS, UNSPECIFIED (2) Diabetic foot ulcer associated with type 2 diabetes mellitus Current Visit: Yes Status: Acute Qualifiers: Non-pressure ulcer stage: with necrosis of bone Code(s): E11.621 - TYPE 2 DIABETES MELLITUS WITH FOOT ULCER; L97.509 - NON-PRESS URE CHRONIC ULCER OTH PRT UNSP FOOT W UNSP SEVERITY (3) Peripheral neuropathy Current Visit: Yes Status: Acute Qualifiers: Peripheral neuropathy type: polyneuropathy associated with underlying disease Qualified Code(s): G63 - Polyneuropathy in diseases classified elsewhere Code(s): G62.9 - POLYNEUROPATHY, UNSPECIFIED
[2021-10-07] MEDS: ENOXAPARIN SODIUM SQ SCH (09:01)
[2021-10-07] MEDS: Lopressor 25MG Tab PO SCH ×2 (09:02→21:18)
[2021-10-07] MEDS: SYNTHROID 75 MCG PO SCH (09:03)
[2021-10-07] MEDS: ZOCOR 20MG PO SCH (09:03)
[2021-10-07] MEDS: Protonix 40MG Tablet PO SCH (09:03)
[2021-10-07] MEDS: Glucophage XR 500 MG PO SCH ×2 (09:18→21:17)
[2021-10-07] MEDS: monoPRIL 10 MG PO SCH (09:18)
[2021-10-07] MEDS ORDERED: TROUGH DRUG LEVELS IJ ONE (09:30)
[2021-10-07] MEDS: VANCOMYCIN 1.25 GM/250 ML BAG 1.25 GM/250 ML PIGGYBACK IV SCH (09:57)
[2021-10-07] MEDS: APRESOLINE 20 MG/ML INJ IV PRN ×2 (12:44→17:45)
--- NOTE | 2021-10-07 13:11 | PCM.NOTE ---
Date and Time: 10/07/21 1307 Subjective Assessment: Pt has no pain (decreased sensation LE). Antonio po well. Had elevated bp 185-202 systolic today; hydralazine 10mg IV prn ordered and being given by RN. - Review of Systems Constitutional: No Fever Abdominal/Gastrointestinal: No Vomiting Objective Exam General Appearance: no apparent distress, alert Neurologic Exam: oriented x 3, cooperative Skin Exam: normal color, warm, dry, No rash Wound Assessment: Skin/Wound Assessment Wound/Incision Assessment Start: 10/03/21 08:51 Text: Status: Active Freq: Q6H Protocol: Document 10/07/21 08:00 SBD (Rec: 10/07/21 08:22 SBD [id number]) Wound/Incision Assessment Right Foot Wound Assessment Shift Assessment Wound Type Incision Wound Stage Non Pressure Wound Dressing Status Dry & Intact Drainage Amount None Comment Surgical dressing still clean, dry, and intact-not to be removed per Dr. Shah's orders. Wound Photo Photo Taken No Eye Exam: eyes nml inspection Ears, Nose, Throat Exam: moist mucous membranes Neck Exam: normal inspection, non-tender, No lymphadenopathy Respiratory Exam: normal breath sounds, lungs clear, No crackles/rales, No rhonchi, No wheezing Cardiovascular Exam: regular rate/rhythm, normal heart sounds, No murmur Gastrointestinal/Abdomen Exam: normal bowel sounds Extremity Exam: other (R foot dressing in place. Nails thickened and yellow; toes are warm with motion intact LLE no c/c/e) OBJECTIVE DATA Vital Signs: Vital Signs - 24 hr Temp Pulse Resp BP Pulse Ox 10/07/21 12:34 59 L 185/84 98 10/07/21 12:00 97.7 F 61 16 212/90 98 10/07/21 08:37 97.5 F 57 L 18 173/74 97 10/07/21 04:34 98.0 F 63 18 158/76 95 10/06/21 23:56 97.7 F 68 18 141/66 96 10/06/21 19:14 97.8 F 63 18 167/73 97 10/06/21 16:17 96.9 F 58 L 16 160/72 97 Pain Assessment - Last Documented Pain Intensity 0 Pain Scale Used 0-10 Pain Scale Intake and Output: Intake & Output 10/05/21 10/06/21 10/07/2121/21 11:59 11:59 11:59 11:59 Intake Total 1650 2206 1828 Output Total 400 Balance 1250 2206 1828 Weight 69.4 kg Lab Results: Lab Results-Last 24 Hours 10/03/21 10/06/21 10/06/21 Range/Units 07:37 16:02 20:35 POC Glucometer 151 H 200 H (74 to 106) mg/dL Vancomycin Trough (10-20) ug/mL Surg PTH Diagnosis See Note H 10/07/21 10/07/21 10/07/21 Range/Units 07:33 09:25 11:46 POC Glucometer 87 135 H (74 to 106) mg/dL Vancomycin Trough 9.65 L (10-20) ug/mL Surg PTH Diagnosis Radiology Exams: Radiology Procedures Category Date Time Status PICC LINE PLACEMENT Urgent Exams 10/09/21 00:00 Ordered Multi-Disciplinary Progress Notes: Multi-Disciplinary Progress Notes 10/06/21 16:18 Physical Therapy Note by Jessica Valentin PHYSICAL THERAPIST ATTEMPTED TO SEE PATIENT TWO TIMES EARLIER TODAY BUT PT REQUESTED BOTH TIMES TO COME BACK LATER. HE HAD SURGERY EARLY THIS MORNING. PT WAS SEEN LATE THIS PM SITTING UP IN HIS CHAIR. HE NOTED HE IS ABLE TO HOP NWB ON THE R LE WITH WALKER BACK AND FOURTH FROM THE BED TO THE BATHROOM. HE NOTES HE ISN'T SUPPOSE TO BE UP INDEPENDENTLY, BUT NOTES HE HAS BEEN. HE DENIES FEELING UNSAFE OR LOSING HIS BALANCE. PT WAS ABLE TO DO SOME SITTING EXERCISES FOR B LE, 10 REPS EACH. PT WAS TOLD TO DO LEG RAISES, KNEE BENDS AND ANKLE PUMPS WHEN IN BED. HE NOTES HE MAY BE HERE IN THE HOSPITAL UNTIL SATURDAY. Initialized on 10/06/21 16:18 - END OF NOTE 10/06/21 15:07 Nutrition Note by Autumn Jeffrey F/u Note: Diet increased to 1800CC with 75-100% po intake. glu 181, adm weight 69.853kg; current weight 69.4kg. goal of po intake >=75% met and ongoing; goal of flu wnl not met and ongoing. Recommend to con't with current diet. Will con't to monitor and f/u prn. T.DENNY Jeffrey Initialized on 10/06/21 15:07 - END OF NOTE 10/06/21 14:03 Case Management Note by Laura Hilton DR.'S NURSE JENNYFER BROOKS- HE REVIEWED CULTURES. NEW ORDERS FOR PICC LINE PLACEMENT. ALSO AT DC TO [place] PATIENT WILL NEED TO BE ON [facility] IV PHARMACY TO DOSE FOR 6 WEEKS STARTING FROM 10/04/21, AT DC TO ALF- [place] ZOSYN (CONTINUE UNTIL THEN). CALLED THIS INFORMATION TO [facility]IR[facility] SO THEY CHECK PRICING AND HOPEFULLY START PRECERT TODAY OR SATURDAY. HOPEFUL FOR DC TO [place] BY MID WEEK NEXT WEEK PATIENT UPDATED ON STATUS AT THIS TIME- AWARE HE WILL LIKELY BE HERE UNTIL MID WEEK NEXT WEEK. PATIENT DOES NOT HAVE ANY TRANSPORTATION FOR OTPT ANTIBIOTIC INFUSIONS. Initialized on 10/06/21 14:03 - END OF NOTE Assessment/Plan (1) Osteomyelitis due to type 2 diabetes mellitus Current Visit: Yes Status: Acute Assessment & Plan: Pt is on IV zosyn and vancomycin. POD #[address] Shah - jazmyn RN, he plans to keep pt here until Saturday, by which time he will arrange IV antibiotics at home. Pt no longer planning on SNF. Code(s): E11.69 - TYPE 2 DIABETES MELLITUS WITH OTHER SPECIFIED COMPLICATION; M86.9 - OSTEOMYELITIS, UNSPECIFIED (2) Hypertension Current Visit: Yes Status: Chronic Qualifiers: Hypertension type: primary hypertension Qualified Code(s): I10 - Essential (primary) hypertension Assessment & Plan: Worse today - will only add prn hydralazine for now as do not want to add to his home meds and potentially cause hypotension after discharge. Code(s): I10 - ESSENTIAL (PRIMARY) HYPERTENSION (3) Type 2 diabetes mellitus Current Visit: Yes Status: Chronic Qualifiers: Diabetes mellitus fdc insulin use: without terminal block assembler use Diabetes mellitus complication status: with hyperglycemia Qualified Code(s): E11.65 - Type 2 diabetes mellitus with hyperglycemia
[2021-10-07] MEDS: Lantus Insulin SQ SCH (21:18)
[2021-10-07] MEDS: Acidophilus TABLET PO SCH (21:18)
[2021-10-08] MEDS: Zosyn 3.375 GM Vial 3.375 GM in Sodium Chloride 100ML MINI-BAG PLUS 100 ML IV SCH ×4 (06:33→23:16)
[2021-10-08] MEDS: ENOXAPARIN SODIUM SQ SCH (08:55)
[2021-10-08] MEDS: monoPRIL 10 MG PO SCH (08:56)
[2021-10-08] MEDS: Glucophage XR 500 MG PO SCH ×2 (08:56→21:24)
[2021-10-08] MEDS: Lopressor 25MG Tab PO SCH (08:56)
[2021-10-08] MEDS: Acidophilus TABLET PO SCH ×3 (08:56→21:24)
[2021-10-08] MEDS: SYNTHROID 75 MCG PO SCH (08:56)
[2021-10-08] MEDS: ZOCOR 20MG PO SCH (08:56)
[2021-10-08] MEDS: Protonix 40MG Tablet PO SCH (08:56)
[2021-10-08] MEDS: VANCOMYCIN 1.25 GM/250 ML BAG 1.25 GM/250 ML PIGGYBACK IV SCH (09:39)
[2021-10-08] MEDS: APRESOLINE 20 MG/ML INJ IV PRN ×2 (11:55→16:44)
--- NOTE | 2021-10-08 15:50 | PCM.NOTE ---
Date and Time: 10/08/21 1547 Subjective Assessment: Pt's bp from 131-207/63-90 in the past 24h. Pt states he has always had a hard time controlling his BP. Antonio po. up with walker. - Review of Systems Constitutional: No Fever Abdominal/Gastrointestinal: No Vomiting Objective Exam General Appearance: no apparent distress, alert, other (standing at sink; walks with walker to sit in chair) Neurologic Exam: oriented x 3, cooperative Skin Exam: warm, dry, No rash Wound Assessment: Skin/Wound Assessment Wound/Incision Assessment Start: 10/03/21 08:51 Text: Status: Active Freq: Q6H Protocol: Document 10/08/21 14:00 TS (Rec: 10/08/21 14:54 TS [id number]) Wound/Incision Assessment Right Foot Wound Assessment Shift Assessment Wound Type Incision Wound Stage Non Pressure Wound Dressing Status Dry & Intact Drainage Amount None Comment Surgical dressing still clean, dry, and intact-not to be removed per Dr. Shah's orders. Wound Photo Photo Taken No Eye Exam: eyes nml inspection Ears, Nose, Throat Exam: moist mucous membranes Neck Exam: normal inspection Respiratory Exam: normal breath sounds, lungs clear, No crackles/rales, No rhonchi, No wheezing Cardiovascular Exam: regular rate/rhythm, normal heart sounds, No murmur Extremity Exam: other (R foot wrapped) OBJECTIVE DATA Vital Signs: Vital Signs - 24 hr Temp Pulse Resp BP Pulse Ox 10/08/21 11:00 97.7 F 61 16 202/84 100 10/08/21 07:00 97.8 F 60 18 175/76 97 10/08/21 03:30 98.9 F 57 L 16 146/67 97 10/07/21 23:00 98.0 F 68 18 142/63 98 10/07/21 19:35 97.7 F 71 20 146/67 98 10/07/21 19:06 71 131/60 98 10/07/21 16:00 97.8 F 62 16 207/82 97 Pain Assessment - Last Documented Pain Intensity 0 Pain Scale Used 0-10 Pain Scale Intake and Output: Intake & Output 10/06/21 10/07/21 10/08/21 10/09/21 11:59 11:59 11:59 11:59 Intake Total 2206 1828 3094 240 Balance 2206 1828 3094 240 Weight 69.4 kg Lab Results: Lab Results-Last 24 Hours 10/07/21 10/07/21 10/08/21 Range/Units 17:11 20:53 07:15 POC Glucometer 113 H 213 H 61 L (74 to 106) mg/dL 10/08/21 10/08/21 Range/Units 08:03 11:27 POC Glucometer 136 H 122 H (74 to 106) mg/dL Radiology Exams: Radiology Procedures Category Date Time Status PICC LINE PLACEMENT Urgent Exams 10/09/21 00:00 Ordered Assessment/Plan (1) Osteomyelitis due to type 2 diabetes mellitus Current Visit: Yes Status: Acute Assessment & Plan: Dr. Shah following. Code(s): E11.69 - TYPE 2 DIABETES MELLITUS WITH OTHER SPECIFIED COMPLICATION; M86.9 - OSTEOMYELITIS, UNSPECIFIED (2) Hypertension Current Visit: Yes Status: Chronic Qualifiers: Hypertension type: primary hypertension Qualified Code(s): I10 - Essential (primary) hypertension Assessment & Plan: increased toprol from 25mg po BID to 50mg po BID. Discussed with pt that want to avoid hypotension, but his BP have been quite high here intermittently. Code(s): I10 - ESSENTIAL (PRIMARY) HYPERTENSION (3) Type 2 diabetes mellitus Current Visit: Yes Status: Chronic Qualifiers: Diabetes mellitus stitcher operator insulin use: without stitcher operator use Diabetes mellitus complication status: with hyperglycemia Qualified Code(s): E11.65 - Type 2 diabetes mellitus with hyperglycemia Assessment & Plan: BS [id number].
[2021-10-08] MEDS: Lantus Insulin SQ SCH (21:24)
[2021-10-08] MEDS: Lopressor 50 MG PO SCH (21:25)
[2021-10-09] MEDS: Zosyn 3.375 GM Vial 3.375 GM in Sodium Chloride 100ML MINI-BAG PLUS 100 ML IV SCH (05:33)
[2021-10-09 08:32] LABS: Absolute Neutrophil Ct (ANC) 5.86 (1.4-6.9); BASOPHIL % 0.5 % (0.0-0.4); Basophil (Absolute #) 0.04 (0-0.4); Eosinophil % 6.5 % (0.00-5.0); Eosinophil (Absolute #) 0.51 (0-0.5); Hematocrit 29.8 % (42-50); Hemoglobin 9.3 gm/dl (12.5-18.0); Lymphocyte (Absolute #) 0.69 (1.0-4.6); Lymphocytes % 8.8 % (24.0-44.0); Mean Corpuscular Hemoglobin 28.1 pg (26-32); Mean Corpuscular Hgb Concent. 31.2 g/dl (32-36); Mean Platelet Volume 11.5 fl (7.5-11.0); Monocyte (Absolute #) 0.72 (0.0-1.3); Monocytes % 9.2 % (0.0-12.0); Platelet Count 213 K/mm3 (150-450); Red Blood Count 3.31 M/mm3 (4.1-5.6); Red Cell Distribution Width 16.2 % (11.5-14.0); White Blood Count 7.8 K/mm3 (4.0-10.5)
[2021-10-09] MEDS: monoPRIL 10 MG PO SCH (08:54)
[2021-10-09] MEDS: Acidophilus TABLET PO SCH ×2 (08:54→14:57)
[2021-10-09] MEDS: Lopressor 50 MG PO SCH (08:55)
[2021-10-09] MEDS: Protonix 40MG Tablet PO SCH (08:55)
[2021-10-09] MEDS: SYNTHROID 75 MCG PO SCH (08:55)
[2021-10-09] MEDS: ZOCOR 20MG PO SCH (08:55)
[2021-10-09 09:21] LABS: ALBUMIN 3.8 g/dL (3.5-5.0); ALKALINE PHOSPHATASE 43 U/L (38-126); BLOOD UREA NITROGEN 12 mg/dL (9-20); CHLORIDE 108 mmol/L (98-107); Calcium 9.1 mg/dL (8.4-10.2); Carbon Dioxide 21 mmol/L (22-30); Creatinine 1 1.19 mg/dL (0.66-1.25); EST GLOMERULAR FILTRATION RATE > 60.0 ML/MIN; Glucose 78 mg/dL (74-106); Potassium 4.5 mmol/L (3.5-5.1); SGOT/AST 22 U/L (17-59); SGPT/ALT 12 U/L (0-50); SODIUM 140 mmol/L (137-145); Total Protein 6.5 g/dL (6.3-8.2)
[2021-10-09] MEDS ORDERED: TROUGH DRUG LEVELS IJ ONE (09:30)
[2021-10-09 10:48] LABS: INR 1.07 (0.8-3.0); PROTIME 12.6 SECONDS (9.4-12.5)
[2021-10-09] MEDS: VANCOMYCIN 1.25 GM/250 ML BAG 1.25 GM/250 ML PIGGYBACK IV SCH (11:32)
[2021-10-09] MEDS: Glucophage XR 500 MG PO SCH (12:40)
[2021-10-09] MEDS: ENOXAPARIN SODIUM SQ SCH (12:40)
[2021-10-09 16:11] VITALS: BP 197/81; PULSE 55; O2SAT 97
--- NOTE | 2021-10-09 16:45 | PCM.NOTE ---
Date and Time: 10/09/21 164 Subjective Assessment: Patient seen at bedside postop day 3. Sitting comfortably in recliner. No complaints of pain. He currently denies any constitutional symptoms of infection. He denies any other pedal complaints at this time Physical Exam - General General Appearance: no apparent distress - Neuro Neurologic: Other (Absent epicritic and protopathic sensations) - Vascular Peripheral Pulses: Posterior tibialis: 1+, Dorsalis-Pedis: 1+ Capillary Refill Time: Immediate Varicosities: Negtive Edema: None - Muscular Muscle Strength: 5/5 on all 4 quadrants Digital Deformity: hammer toe Equinus: Gastorocnemius equinus - Narrative Narrative Physical Exam: Podiatry Physical Exam Dermatological exam: Constitutionally no strikethrough on secondary dressing. Final dressing with minimal strikethrough. Dressing removed revealing a coapt surgical site. No active bleeding. No residual signs of infection. No signs of dehiscence of surgical wound. Skin edges are blanchable. Musculoskeletal exam: Wiggles toes. Compartments soft and compressible OBJECTIVE DATA Vital Signs: Vital Signs - 24 hr Temp Pulse Resp BP Pulse Ox 10/09/21 13:00 98.1 F 55 L 16 197/81 97 10/09/21 07:43 98.9 F 80 16 159/72 97 10/09/21 05:00 98.1 F 69 18 185/72 95 10/08/21 23:00 98.7 F 58 L 20 143/65 96 10/08/21 19:00 97.7 F 72 18 150/70 99 Pain Assessment - Last Documented Pain Intensity 0 Pain Scale Used 0-10 Pain Scale Intake and Output: Intake & Output 10/07/21 10/08/21 10/09/21 10/10/21 11:59 11:59 11:59 11:59 Intake Total 1828 3094 2210 480 Output Total 450 Balance 1828 3094 2210 30 Lab Results: Lab Results-Last 24 Hours 10/08/21 10/09/21 10/09/21 Range/Units 20:40 05:23 07:25 WBC (4.0-10.5) K/mm3 RBC (4.1-5.6) M/mm3 Hgb (12.5-18.0) gm/dl Hct (42-50) % MCV (78-100) fl MCH (26-32) pg MCHC (32-36) g/dl RDW (11.5-14.0) % Plt Count (150-450) K/mm3 MPV (7.5-11.0) fl Gran % (36.0-66.0) % Eos # (Auto) (0-0.5) Absolute Lymphs (auto) (1.0-4.6) Absolute Monos (auto) (0.0-1.3) Lymphocytes % (24.0-44.0) % Monocytes % (0.0-12.0) % Eosinophils % (0.00-5.0) % Basophils % (0.0-0.4) % Absolute Granulocytes (1.4-6.9) Basophils # (0-0.4) PT (9.4-12.5) SECONDS INR (0.8-3.0) Sodium (137-145) mmol/L Potassium (3.5-5.1) mmol/L Chloride (98-107) mmol/L Carbon Dioxide (22-30) mmol/L Anion Gap (5-15) MEQ/L BUN (9-20) mg/dL Creatinine (0.66-1.25) mg/dL Estimated GFR ML/MIN Glucose (74-106) mg/dL POC Glucometer 203 H 66 L 81 (74 to 106) mg/dL Calcium (8.4-10.2) mg/dL Total Bilirubin (0.2-1.3) mg/dL AST (17-59) U/L ALT (0-50) U/L Alkaline Phosphatase (38-126) U/L Serum Total Protein (6.3-8.2) g/dL Albumin (3.5-5.0) g/dL Vancomycin Trough (10-20) ug/mL 10/09/21 10/09/21 10/09/21 Range/Units 08:05 08:05 08:48 WBC 7.8 (4.0-10.5) K/mm3 RBC 3.31 L (4.1-5.6) M/mm3 Hgb 9.3 L (12.5-18.0) gm/dl Hct 29.8 L (42-50) % MCV 90.0 (78-100) fl MCH 28.1 (26-32) pg MCHC 31.2 L (32-36) g/dl RDW 16.2 H (11.5-14.0) % Plt Count 213 (150-450) K/mm3 MPV 11.5 H (7.5-11.0) fl Gran % 75.0 H (36.0-66.0) % Eos # (Auto) 0.51 H (0-0.5) Absolute Lymphs (auto) 0.69 L (1.0-4.6) Absolute Monos (auto) 0.72 (0.0-1.3) Lymphocytes % 8.8 L (24.0-44.0) % Monocytes % 9.2 (0.0-12.0) % Eosinophils % 6.5 H (0.00-5.0) % Basophils % 0.5 (0.0-0.4) % Absolute Granulocytes 5.86 (1.4-6.9) Basophils # 0.04 (0-0.4) PT (9.4-12.5) SECONDS INR (0.8-3.0) Sodium 140 (137-145) mmol/L Potassium 4.5 (3.5-5.1) mmol/L Chloride 108 H (98-107) mmol/L Carbon Dioxide 21 L (22-30) mmol/L Anion Gap 15.0 (5-15) MEQ/L BUN 12 (9-20) mg/dL Creatinine 1.19 (0.66-1.25) mg/dL Estimated GFR > 60.0 ML/MIN Glucose 78 (74-106) mg/dL POC Glucometer (74 to 106) mg/dL Calcium 9.1 (8.4-10.2) mg/dL Total Bilirubin 0.40 (0.2-1.3) mg/dL AST 22 (17-59) U/L ALT 12 (0-50) U/L Alkaline Phosphatase 43 (38-126) U/L Serum Total Protein 6.5 (6.3-8.2) g/dL Albumin 3.8 (3.5-5.0) g/dL Vancomycin Trough 11.16 (10-20) ug/mL 10/09/21 10/09/21 Range/Units 10:35 11:40 WBC (4.0-10.5) K/mm3 RBC (4.1-5.6) M/mm3 Hgb (12.5-18.0) gm/dl Hct (42-50) % MCV (78-100) fl MCH (26-32) pg MCHC (32-36) g/dl RDW (11.5-14.0) % Plt Count (150-450) K/mm3 MPV (7.5-11.0) fl Gran % (36.0-66.0) % Eos # (Auto) (0-0.5) Absolute Lymphs (auto) (1.0-4.6) Absolute Monos (auto) (0.0-1.3) Lymphocytes % (24.0-44.0) % Monocytes % (0.0-12.0) % Eosinophils % (0.00-5.0) % Basophils % (0.0-0.4) % Absolute Granulocytes (1.4-6.9) Basophils # (0-0.4) PT 12.6 H (9.4-12.5) SECONDS INR 1.07 (0.8-3.0) Sodium (137-145) mmol/L Potassium (3.5-5.1) mmol/L Chloride (98-107) mmol/L Carbon Dioxide (22-30) mmol/L Anion Gap (5-15) MEQ/L BUN (9-20) mg/dL Creatinine (0.66-1.25) mg/dL Estimated GFR ML/MIN Glucose (74-106) mg/dL POC Glucometer 75 (74 to 106) mg/dL Calcium (8.4-10.2) mg/dL Total Bilirubin (0.2-1.3) mg/dL AST (17-59) U/L ALT (0-50) U/L Alkaline Phosphatase (38-126) U/L Serum Total Protein (6.3-8.2) g/dL Albumin (3.5-5.0) g/dL Vancomycin Trough (10-20) ug/mL Multi-Disciplinary Progress Notes: Multi-Disciplinary Progress Notes 10/09/21 16:17 Physical Therapy Note by Audrey Barros 10/09/21: PT WAS SEEN THIS AM IN HIS ROOM. UPON ARRIVAL TO PT'S ROOM, PT WAS SITTING IN BEDSIDE CHAIR. HE REPORTED 0 PAIN IN R FOOT ON A 0 TO 10 PAIN SCALE, 10 = EXTREME PAIN. PT TRANSFERRED SIT TO STAND INDEP, HE AMBULATED ~ 25', NWB ON R WITH WALKER AND CCG X 1. PT ABLE TO PERFORM STANDING AND SITTING R LE EX'S WITHOUT DIFFICULTY OR C/O PAIN. PT RETURNED TO BEDSIDE CHAIR AFTER COMPLETING RX. Initialized on 10/09/21 16:17 - END OF NOTE 10/09/21 15:12 Case Management Note by Laura Hilton REFERRAL FOR SERVICES WAS FAXED TO [facility]. THEY ARE AWARE PATIENT IS DCING HOME TODAY. THEY WILL NEED FAXED THE DC INSTRUCTIONS, DC MED LIST, DC SUMMARY (IF AVAILABLE) TO [phone] Initialized on 10/09/21 15:12 - END OF NOTE 10/09/21 14:03 Case Management Note by Laura Hilton [facility] HAS NO STAFF FOR REFERRAL, [place] [facility] IN NOT IN NETWORK, [facility] HAS NO [place] STAFF, [facility] NOT TAKING ANY NEW REFERRALS, REFERRAL FAXED TO [facility] AT THIS TIME Initialized on 10/09/21 14:03 - END OF NOTE 10/09/21 13:27 Case Management Note by Laura Hilton UNABLE TO TAKE PATIENT ON IV ANTIBIOTICS, MMM UNABLE TO TAKE PATIENT. WHEN UPDATING PATIENT ON THIS- PATIENT ASKING WHY HE CAN'T RETURN HOME WITH PO ANTIBIOTICS FOR HIS LEG. I S/W DR. SINGLETARY- HE IS ACTUALLY AGREEABLE TO THIS PLAN NOW THAT CULTURES ARE BACK. PATIENT CAN DC HOME TODAY ON PO ANTIBIOTICS. PATIENT REPORTS HE FEELS COMFORTABLE USING HIS KNEE SCOOTER AT HOME. REPORTS HIS SISTERS WILL PROVIDE HIM TRANSPORTATION FOR DC HOME AND FOLLOW UP VISITS. WILL ARRANGE FOR [facility] TO ASSIST IN MONITORING PATIENT AT HOME SINCE HE HAS NO ASSISTANCE OR HELP Initialized on 10/09/21 13:27 - END OF NOTE 10/09/21 09:17 Case Management Note by Laura Hilton DR. MENTIONED AT HOME ANTIBIOTIC INFUSIONS TO PATIENT THIS WEEKEND. PATIENT BEFORE HAS STATED HE IS UNCOMFORTABLE WITH DOING ANYTHING WITH HIS IV. I WENT AND S/W PATIENT AGAIN THIS AM. HE WAS NOTIFIED THAT [facility] WILL WANT TO TEACH HIM OR SOMEONE ELSE HOW TO GIVE THE INFUSIONS. THEY WON'T BE THERE EVER DAY TO DO THEM FOR HIM. PATIENT HAS NO ONE [facility] CAN TEACH EITHER. AFTER CONSIDERATION- PATIENT WOULD LIKE TO CONTINUE TO GO TO THE HALF-WAY HE ALSO HAS NO TRANSPORTATION FOR OTPT INFUSIONS Initialized on 10/09/21 09:17 - END OF NOTE Assessment/Plan (1) Osteomyelitis due to type 2 diabetes mellitus Current Visit: Yes Status: Acute Assessment & Plan: Patient examination evaluation. Radiographs reviewed and discussed with patient demonstrating interval amputation of the fifth digit as well as the fifth metatarsal to proximal one third diaphysis. Patient is progressing without complication status post repeat incision and drainage and bone debridement, partial metatarsal osteotomy abductor digiti minimi muscle transfer and delayed primary closure. Patient has voiced his understanding of the postoperative course at this time. Patient no longer wants to proceed with going to a skilled nursing and indicates that he is capable of caring for himself at home. Patient will be going home with p.o. antibiotics as Zyvox 600 mg twice daily for 10 days As patient is growing MRSA equivalent Patient to remain nonweightbearing to the right lower extremity. On discharge she has his knee scooter for ambulatory assistance. [place] 03/20/2025 every 6 hours for postoperative pain. Aspirin 325 mg p.o. daily on discharge. Case management: Patient indecisive however at this time would like to go home. Discharge per medicine at this time Code(s): E11.69 - TYPE 2 DIABETES MELLITUS WITH OTHER SPECIFIED COMPLICATION; M86.9 - OSTEOMYELITIS, UNSPECIFIED (2) Diabetic foot ulcer associated with type 2 diabetes mellitus Current Visit: Yes Status: Acute Qualifiers: Non-pressure ulcer stage: with necrosis of bone Code(s): E11.621 - TYPE 2 DIABETES MELLITUS WITH FOOT ULCER; L97.509 - NON- PRESSURE CHRONIC ULCER OTH PRT UNSP FOOT W UNSP SEVERITY (3) Peripheral neuropathy Current Visit: Yes Status: Acute Qualifiers: Peripheral neuropathy type: polyneuropathy associated with underlying disease Qualified Code(s): G63 - Polyneuropathy in diseases classified elsewhere Code(s): G62.9 - POLYNEUROPATHY, UNSPECIFIED
--- NOTE | 2021-10-09 20:35 | PCM.DS ---
Discharge Summary Date of Admission: 10/03/21 05:38 Admitting Physician: JOSELYN CARPENTER Primary Care Provider: GEOFFREY OROSCO Allergies Allergies No Known Drug Allergies Allergy (Verified 10/03/21 06:20) Hospital Summary - Hospital Course Hospital Course: Chief Complaint Diagnosis FIFTH TOE AND METATARSAL AMPUTATION R FOOT Allergies Allergy/AdvReac Type Severity Reaction Status Date / Time No Known Drug Allergies Allergy Verified 10/03/21 06:20 Vital Signs (Last 24 hours) Temp Pulse Resp BP Pulse Ox 10/09/21 13:00 98.1 F 55 L 16 197/81 97 10/09/21 07:43 98.9 F 80 16 159/72 97 10/09/21 05:00 98.1 F 69 18 185/72 95 10/08/21 23:00 98.7 F 58 L 20 143/65 96 Home Medications Medication Instructions Recorded Confirmed Last Taken Type Atorvastatin Calcium 20 mg PO DAILY 09/25/21 10/03/21 10/03/21 History Fosinopril Sodium [Monopril] 30 mg PO DAILY 09/25/21 10/03/21 10/03/21 History Insulin Glargine,Hum.rec.anlog 23 units SQ QHS 09/25/21 10/03/21 10/02/21 History [Lantus] Levothyroxine Sodium 75 mcg PO DAILY 09/25/21 10/03/21 10/02/21 History [Levothyroxine] Metformin HCl [Metformin ER 1,000 mg PO BID 09/25/21 10/03/21 10/02/21 History Osmotic] Metoprolol Tartrate 25 mg PO BID 09/25/21 10/03/21 10/03/21 History Omeprazole 20 mg PO DAILY 09/25/21 10/03/21 10/03/21 History Lactobacillus Acidophilus 1 tab PO TID 30 Days #90 tablet 10/09/21 Unknown Rx [Acidophilus TABLET] Metoprolol Tartrate 50 mg 50 mg PO BID 30 Days #60 tablet 10/09/21 Unknown Rx [Lopressor 50 MG] Current Medications Discontinued Medications Generic Name Dose Route Start Last Admin Trade Name Freq PRN Reason Stop Dose Admin Hydrocodone Bitart/Acetaminophen 1 tab 10/03/21 08:04 10/03/21 09:45 Hydrocodone/Apap 5/325 Mg Tablet PO 10/08/21 08:03 1 tab QID PRN PRN Administration PAIN Aspirin 325 mg 10/03/21 10:00 10/03/21 09:45 Aspirin 325 Mg Tablet.Ec PO 11/02/21 09:59 325 mg DAILY AGUSTINA Administration Bupivacaine HCl Confirm 10/03/21 06:33 Bupivacaine Hcl/Pf 50 Mg/10 Ml Vial Administered 10/03/21 06:34 Dose 50 mg IJ .STK-MED ONE Bupivacaine HCl Confirm 10/03/21 07:11 Bupivacaine Hcl/Pf 50 Mg/10 Ml Vial Administered 10/03/21 07:12 Dose 50 mg IJ .STK-MED ONE Bupivacaine HCl Confirm 10/06/21 06:24 Bupivacaine Hcl/Pf 50 Mg/10 Ml Vial Administered 10/06/21 06:25 Dose 100 mg IJ .STK-MED ONE Device 1 10/07/21 09:30 10/08/21 22:43 Therapuetic Drug Level Monitor Each IJ 10/07/21 09:31 Not Given 1XONLY ONE Device 1 10/09/21 09:30 Therapuetic Drug Level Monitor Each IJ 10/09/21 09:31 1XONLY ONE Enalaprilat 1.25 mg 10/03/21 09:51 Enalaprilat 2.5 Mg Injection IV 11/02/21 09:50 Q6H/PRN PRN HYPERTENSION Enoxaparin Sodium 40 mg 10/04/21 10:00 10/09/21 12:40 Enoxaparin Sodium 40 Mg/0.4 Ml Syringe SQ 11/03/21 09:59 Not Given DAILY AGUSTINA Fosinopril Sodium 30 mg 10/03/21 11:00 10/09/21 08:54 Fosinopril Sodium 10 Mg Tablet PO 11/02/21 10:59 30 mg DAILY AGUSTINA Administration Hydralazine HCl 10 mg 10/07/21 12:26 10/08/21 16:44 Hydralazine Hcl 20 Mg/Ml Vial IV 11/06/21 12:25 10 mg [id number] PRN Administration HYPERTENSION Cefazolin Sodium/Dextrose 2 gm in 50 mls @ 100 mls/hr 10/03/21 06:00 10/03/21 06:41 Cefazolin 2 Gm-D5w Bag IV 10/03/21 06:29 100 mls/hr ONCALLTOOR AGUSTINA Administration Piperacillin Sod/Tazobactam 100 mls @ 200 mls/hr 10/03/21 12:00 10/09/21 05:33 Sod 3.375 gm/ Sodium Chloride IV 10/09/21 11:59 200 mls/hr Q6HT AGUSTINA Administration Vancomycin HCl 1 gm in 200 mls @ 125 mls/hr 10/04/21 08:30 10/04/21 09:02 Vancomycin 1 Gram/200 Ml Bag IV 11/03/21 08:29 Not Given Q12H AGUSTINA Vancomycin HCl 1.25 gm in 250 mls @ 166.667 mls/hr 10/04/21 10:00 10/09/21 11:32 Vancomycin 1.25 Gm/250 Ml Bag IV 10/10/21 09:59 166.667 mls/hr DAILY AGUSTINA Administration Sodium Chloride Confirm 10/06/21 06:24 Sodium Chloride 0.9% 1000 Ml Administered 10/06/21 06:25 Dose 1,000 mls @ ud .ROUTE .STK-MED ONE Sodium Chloride Confirm 10/06/21 07:26 Sodium Chloride 0.9% 1000 Ml Administered 10/06/21 07:27 Dose 1,000 mls @ ud .ROUTE .STK-MED ONE Ibuprofen 600 mg 10/03/21 08:48 Ibuprofen 600 Mg Tablet PO 11/02/21 08:47 Q6H/PRN PRN BREAKTHRU PAIN Insulin Glargine 23 unit 10/03/21 22:00 10/08/21 21:24 Insulin Glargine 1 Unit SQ 11/02/21 21:59 23 unit QHS AGUSTINA Administration Insulin Human Lispro 0 unit 10/03/21 12:04 10/08/21 21:25 Insulin Lispro 1 Unit SQ 11/02/21 12:03 2 unit UD PRN Administration HYPERGLYCEMIA Lactobacillus Acidophilus 1 tab 10/07/21 22:00 10/09/21 14:57 Lactobacillus Acidophilus 1 Tab Tablet PO 11/06/21 21:59 1 tab TID AGUSTINA Administration Levothyroxine Sodium 75 mcg 10/03/21 11:00 10/09/21 08:55 Levothyroxine Sodium 75 Mcg Tablet PO 11/02/21 10:59 75 mcg DAILY AGUSTINA Administration Lidocaine HCl Confirm 10/03/21 06:33 Lidocaine Hcl/Pf 1 % 30 Ml Pf Sdv Administered 10/03/21 06:34 Dose 30 ml IJ .STK-MED ONE Lidocaine HCl Confirm 10/06/21 06:24 Lidocaine Hcl 1% 20 Ml Mdv 20 Ml Ml Administered 10/06/21 06:25 Dose 20 ml .ROUTE .STK-MED ONE Metformin HCl 1,000 mg 10/03/21 11:00 10/09/21 12:40 Metformin Hcl Er 500 Mg Tab PO 11/02/21 10:59 Not Given BID AGUSTINA Metoprolol Tartrate 25 mg 10/03/21 11:00 10/08/21 08:56 Metoprolol Tartrate 25 Mg Tab PO 11/02/21 10:59 25 mg BID AGUSTINA Administration Metoprolol Tartrate 50 mg 10/08/21 22:00 10/09/21 08:55 Metoprolol Tartrate 50 Mg Tablet PO 11/07/21 21:59 50 mg BID AGUSTINA Administration Pantoprazole Sodium 40 mg 10/03/21 11:00 10/09/21 08:55 Protonix (Pantoprazole) 40 Mg Tablet PO 11/02/21 10:59 40 mg DAILY AGUSTINA Administration Simvastatin 20 mg 10/03/21 11:00 10/09/21 08:55 Simvastatin 20 Mg Tablet PO 11/02/21 10:59 20 mg DAILY AGUSTINA Administration Intake & Output (Last 24 hours) 10/07/21 10/08/21 10/09/21 10/10/21 11:59 11:59 11:59 11:59 Intake Total 1828 3094 2210 480 Output Total 450 Balance 1828 3094 2210 30 Microbiology Results (Last 24 hours) 10/03/21 07:37 Toe - Right 5th Toe Anaerobic Culture - Pending 10/03/21 07:37 Toe - Right 5th Toe Tissue Culture - Pending Laboratory Results (Last 24 hours) 10/09/21 10/09/21 10/09/21 11:40 10:35 08:48 WBC RBC Hgb Hct MCV MCH MCHC RDW Plt Count MPV Gran % Eos # (Auto) Absolute Lymphs (auto) Absolute Monos (auto) Lymphocytes % Monocytes % Eosinophils % Basophils % Absolute Granulocytes Basophils # PT 12.6 H INR 1.07 Sodium Potassium Chloride Carbon Dioxide Anion Gap BUN Creatinine Estimated GFR Glucose POC Glucometer 75 Calcium Total Bilirubin AST ALT Alkaline Phosphatase Serum Total Protein Albumin Vancomycin Trough 11.16 10/09/21 10/09/21 10/09/21 08:05 08:05 07:25 WBC 7.8 RBC 3.31 L Hgb 9.3 L Hct 29.8 L MCV 90.0 MCH 28.1 MCHC 31.2 L RDW 16.2 H Plt Count 213 MPV 11.5 H Gran % 75.0 H Eos # (Auto) 0.51 H Absolute Lymphs (auto) 0.69 L Absolute Monos (auto) 0.72 Lymphocytes % 8.8 L Monocytes % 9.2 Eosinophils % 6.5 H Basophils % 0.5 Absolute Granulocytes 5.86 Basophils # 0.04 PT INR Sodium 140 Potassium 4.5 Chloride 108 H Carbon Dioxide 21 L Anion Gap 15.0 BUN 12 Creatinine 1.19 Estimated GFR > 60.0 Glucose 78 POC Glucometer 81 Calcium 9.1 Total Bilirubin 0.40 AST 22 ALT 12 Alkaline Phosphatase 43 Serum Total Protein 6.5 Albumin 3.8 Vancomycin Trough 10/09/21 10/08/21 05:23 20:40 WBC RBC Hgb Hct MCV MCH MCHC RDW Plt Count MPV Gran % Eos # (Auto) Absolute Lymphs (auto) Absolute Monos (auto) Lymphocytes % Monocytes % Eosinophils % Basophils % Absolute Granulocytes Basophils # PT INR Sodium Potassium Chloride Carbon Dioxide Anion Gap BUN Creatinine Estimated GFR Glucose POC Glucometer 66 L 203 H Calcium Total Bilirubin AST ALT Alkaline Phosphatase Serum Total Protein Albumin Vancomycin Trough Orders (Last 24 hours) Category Date Time Status Discharge Planning,Consult Routine Discharge 10/09/21 Active Discharge Routine Discharge 10/09/21 Ordered Discharge/Telephone Order Routine Discharge 10/09/21 Active CBC W DIFF AM.LAB Lab 10/09/21 08:05 Completed CMP AM.LAB Lab 10/09/21 08:05 Completed POCT GLUCOSE Stat Lab 10/08/21 20:40 Completed POCT GLUCOSE Stat Lab 10/09/21 05:23 Completed POCT GLUCOSE Stat Lab 10/09/21 07:25 Completed POCT GLUCOSE Stat Lab 10/09/21 11:40 Completed PT INR [PROTIME WITH INR] Routine Lab 10/09/21 10:35 Completed Vancomycin, Trough Urgent Lab 10/09/21 08:48 Completed Metoprolol Tartrate 50 mg [Lopressor 50 MG] Med 10/08/21 22:00 Discontinued 50 mg PO BID Therapuetic Drug Level Monitor [Trough Drug Levels] Med 10/09/21 09:30 Discontinued 1 IJ 1XONLY ONE Patient Care Notes (Last 24 hours) 10/09/21 18:15 Nursing Note by Tara Moraes ALL PAPERWORK FAXED TO [facility] [employer] [phone] JUANGNEW 10-09-21 Initialized on 10/09/21 18:15 - END OF NOTE 10/09/21 17:16 Nursing Note by Mireille Tipton patient verbalizes understanding of all discharge teaching. Rx sent to [facility] in [place]. [facility] to follow up with patient at discharge Initialized on 10/09/21 17:16 - END OF NOTE 10/09/21 16:40 [employer]IM[employer] Note by Dorothy Black Patient refuses accu check reported to RN he is going home Initialized on 10/09/21 16:40 - END OF NOTE 10/09/21 16:17 Physical Therapy Note by Audrey Barros 10/09/21: PT WAS SEEN THIS AM IN HIS ROOM. UPON ARRIVAL TO PT'S ROOM, PT WAS SITTING IN BEDSIDE CHAIR. HE REPORTED 0 PAIN IN R FOOT ON A 0 TO 10 PAIN SCALE, 10 = EXTREME PAIN. PT TRANSFERRED SIT TO STAND INDEP, HE AMBULATED ~ 25', NWB ON R WITH WALKER AND CCG X 1. PT ABLE TO PERFORM STANDING AND SITTING R LE EX'S WITHOUT DIFFICULTY OR C/O PAIN. PT RETURNED TO BEDSIDE CHAIR AFTER COMPLETING RX. Initialized on 10/09/21 16:17 - END OF NOTE 10/09/21 15:12 Case Management Note by Laura Hilton REFERRAL FOR SERVICES WAS FAXED TO [facility] [employer]. THEY ARE AWARE PATIENT IS DCING HOME TODAY. THEY WILL NEED FAXED THE DC INSTRUCTIONS, DC MED LIST, DC SUMMARY (IF AVAILABLE) TO [phone] Initialized on 10/09/21 15:12 - END OF NOTE 10/09/21 14:03 Case Management Note by Laura Hilton [facility] HAS NO STAFF FOR REFERRAL, [facility] IN NOT IN NETWORK, [facility] HAS NO [facility] STAFF, [facility] NOT TAKING ANY NEW REFERRALS, REFERRAL FAXED TO [facility] AT THIS TIME Initialized on 10/09/21 14:03 - END OF NOTE 10/09/21 13:27 Case Management Note by Laura Hilton UNABLE TO TAKE PATIENT ON IV ANTIBIOTICS, MMM UNABLE TO TAKE PATIENT. WHEN UPDATING PATIENT ON THIS- PATIENT ASKING WHY HE CAN'T RETURN HOME WITH PO ANTIBIOTICS FOR HIS LEG. I S/W DR. SINGLETARY- HE IS ACTUALLY AGREEABLE TO THIS PLAN NOW THAT CULTURES ARE BACK. PATIENT CAN DC HOME TODAY ON PO ANTIBIOTICS. PATIENT REPORTS HE FEELS COMFORTABLE USING HIS KNEE SCOOTER AT HOME. REPORTS HIS SISTERS WILL PROVIDE HIM TRANSPORTATION FOR DC HOME AND FOLLOW UP VISITS. WILL ARRANGE FOR [facility] TO ASSIST IN MONITORING PATIENT AT HOME SINCE HE HAS NO ASSISTANCE OR HELP Initialized on 10/09/21 13:27 - END OF NOTE 10/09/21 09:17 Case Management Note by Laura Hilton DR. MENTIONED AT HOME ANTIBIOTIC INFUSIONS TO PATIENT THIS WEEKEND. PATIENT BEFORE HAS STATED HE IS UNCOMFORTABLE WITH DOING ANYTHING WITH HIS IV. I WENT AND S/W PATIENT AGAIN THIS AM. HE WAS NOTIFIED THAT [facility] WILL WANT TO TEACH HIM OR SOMEONE ELSE HOW TO GIVE THE INFUSIONS. THEY WON'T BE THERE EVER DAY TO DO THEM FOR HIM. PATIENT HAS NO ONE [facility] CAN TEACH EITHER. AFTER CONSIDERATION- PATIENT WOULD LIKE TO CONTINUE TO GO TO THE [facility] HE ALSO HAS NO TRANSPORTATION FOR OTPT INFUSIONS Initialized on 10/09/21 09:17 - END OF NOTE - Vitals & Intake/Output Vital Signs: Vital Signs Temperature 98.1 F 10/09/21 13:00 Pulse Rate 55 L 10/09/21 13:00 Respiratory Rate 16 10/09/21 13:00 Blood Pressure 197/81 10/09/21 13:00 O2 Sat by Pulse Oximetry 97 10/09/21 13:00 Intake & Output: Intake & Output 10/07/21 10/08/21 10/09/21 10/10/21 11:59 11:59 11:59 11:59 Intake Total 1828 3094 2210 480 Output Total 450 Balance 1828 3094 2210 30 - Lab Result Diagrams: 10/09/21 08:05 10/09/21 08:05 Lab Results-Last 24 Hrs: Lab Results-Last 24 Hours 10/08/21 10/09/21 10/09/21 Range/Units 20:40 05:23 07:25 WBC (4.0-10.5) K/mm3 RBC (4.1-5.6) M/mm3 Hgb (12.5-18.0) gm/dl Hct (42-50) % MCV (78-100) fl MCH (26-32) pg MCHC (32-36) g/dl RDW (11.5-14.0) % Plt Count (150-450) K/mm3 MPV (7.5-11.0) fl Gran % (36.0-66.0) % Eos # (Auto) (0-0.5) Absolute Lymphs (auto) (1.0-4.6) Absolute Monos (auto) (0.0-1.3) Lymphocytes % (24.0-44.0) % Monocytes % (0.0-12.0) % Eosinophils % (0.00-5.0) % Basophils % (0.0-0.4) % Absolute Granulocytes (1.4-6.9) Basophils # (0-0.4) PT (9.4-12.5) SECONDS INR (0.8-3.0) Sodium (137-145) mmol/L Potassium (3.5-5.1) mmol/L Chloride (98-107) mmol/L Carbon Dioxide (22-30) mmol/L Anion Gap (5-15) MEQ/L BUN (9-20) mg/dL Creatinine (0.66-1.25) mg/dL Estimated GFR ML/MIN Glucose (74-106) mg/dL POC Glucometer 203 H 66 L 81 (74 to 106) mg/dL Calcium (8.4-10.2) mg/dL Total Bilirubin (0.2-1.3) mg/dL AST (17-59) U/L ALT (0-50) U/L Alkaline Phosphatase (38-126) U/L Serum Total Protein (6.3-8.2) g/dL Albumin (3.5-5.0) g/dL Vancomycin Trough (10-20) ug/mL 10/09/21 10/09/21 10/09/21 Range/Units 08:05 08:05 08:48 WBC 7.8 (4.0-10.5) K/mm3 RBC 3.31 L (4.1-5.6) M/mm3 Hgb 9.3 L (12.5-18.0) gm/dl Hct 29.8 L (42-50) % MCV 90.0 (78-100) fl MCH 28.1 (26-32) pg MCHC 31.2 L (32-36) g/dl RDW 16.2 H (11.5-14.0) % Plt Count 213 (150-450) K/mm3 MPV 11.5 H (7.5-11.0) fl Gran % 75.0 H (36.0-66.0) % Eos # (Auto) 0.51 H (0-0.5) Absolute Lymphs (auto) 0.69 L (1.0-4.6) Absolute Monos (auto) 0.72 (0.0-1.3) Lymphocytes % 8.8 L (24.0-44.0) % Monocytes % 9.2 (0.0-12.0) % Eosinophils % 6.5 H (0.00-5.0) % Basophils % 0.5 (0.0-0.4) % Absolute Granulocytes 5.86 (1.4-6.9) Basophils # 0.04 (0-0.4) PT (9.4-12.5) SECONDS INR (0.8-3.0) Sodium 140 (137-145) mmol/L Potassium 4.5 (3.5-5.1) mmol/L Chloride 108 H (98-107) mmol/L Carbon Dioxide 21 L (22-30) mmol/L Anion Gap 15.0 (5-15) MEQ/L BUN 12 (9-20) mg/dL Creatinine 1.19 (0.66-1.25) mg/dL Estimated GFR > 60.0 ML/MIN Glucose 78 (74-106) mg/dL POC Glucometer (74 to 106) mg/dL Calcium 9.1 (8.4-10.2) mg/dL Total Bilirubin 0.40 (0.2-1.3) mg/dL AST 22 (17-59) U/L ALT 12 (0-50) U/L Alkaline Phosphatase 43 (38-126) U/L Serum Total Protein 6.5 (6.3-8.2) g/dL Albumin 3.8 (3.5-5.0) g/dL Vancomycin Trough 11.16 (10-20) ug/mL 10/09/21 10/09/21 Range/Units 10:35 11:40 WBC (4.0-10.5) K/mm3 RBC (4.1-5.6) M/mm3 Hgb (12.5-18.0) gm/dl Hct (42-50) % MCV (78-100) fl MCH (26-32) pg MCHC (32-36) g/dl RDW (11.5-14.0) % Plt Count (150-450) K/mm3 MPV (7.5-11.0) fl Gran % (36.0-66.0) % Eos # (Auto) (0-0.5) Absolute Lymphs (auto) (1.0-4.6) Absolute Monos (auto) (0.0-1.3) Lymphocytes % (24.0-44.0) % Monocytes % (0.0-12.0) % Eosinophils % (0.00-5.0) % Basophils % (0.0-0.4) % Absolute Granulocytes (1.4-6.9) Basophils # (0-0.4) PT 12.6 H (9.4-12.5) SECONDS INR 1.07 (0.8-3.0) Sodium (137-145) mmol/L Potassium (3.5-5.1) mmol/L Chloride (98-107) mmol/L Carbon Dioxide (22-30) mmol/L Anion Gap (5-15) MEQ/L BUN (9-20) mg/dL Creatinine (0.66-1.25) mg/dL Estimated GFR ML/MIN Glucose (74-106) mg/dL POC Glucometer 75 (74 to 106) mg/dL Calcium (8.4-10.2) mg/dL Total Bilirubin (0.2-1.3) mg/dL AST (17-59) U/L ALT (0-50) U/L Alkaline Phosphatase (38-126) U/L Serum Total Protein (6.3-8.2) g/dL Albumin (3.5-5.0) g/dL Vancomycin Trough (10-20) ug/mL Micro Results-Entire Visit: Accuchecks Date 10/09/21 Date 10/09/21 Time 11:57 Time 07:42 - Procedures and Test Procedures and Tests throughout Hospitalization: Therapy Orders & Screens 10/03/21 08:00 OT Eval and Treat ( Order) ONCE Comment: Consulting Provider: Physician Instructions: Reason For Exam: PT Eval & Treat ( Order) ONCE Reason for Eval:: Post op non weight bearign to right lower extremity Diagnosis: Osteomyelitis right foot 10/03/21 08:01 PT Gait Training ONCE Comment: Physician Instructions: Reason For Exam: 10/03/21 08:51 OT Screen per Nursing Assess ONCE Comment: Protocol Order Physician Instructions: Greater than 3 points order OT Admission Screening Reason For Exam: Triggered on Admission Diagnosis: Amputation of 5th toe on right foot Open Wound/Cellutlitis/Pressure Ulcers: Yes Acute Fx/ORIF/Change in wt bearing status: Yes Severe MUSCULOSKELETAL pain: No ADL Dysfunction: No Acute CVA w/Hemiparesis/Hemiplegia: No Decreased Functional Mobility/Strength: Yes Sprain/Strain: No Acute Post-op Mobility Dysfunction: No Total Points: 11 Discharge Exam General Appearance: no apparent distress, alert Neurologic Exam: alert, oriented x 3, cooperative, normal mood/affect, nml cerebellar function, sensation nml, No motor deficits Eye Exam: PERRL, EOMI, eyes nml inspection Ears, Nose, Throat Exam: normal ENT inspection, pharynx normal, moist mucous membranes Neck Exam: normal inspection, non-tender, supple, full range of motion Respiratory Exam: normal breath sounds, lungs clear, No respiratory distress Cardiovascular Exam: regular rate/rhythm, normal heart sounds Gastrointestinal/Abdomen Exam: soft, No tenderness, No mass Male Genitalia Exam: deferred Rectal Exam: deferred Back Exam: normal inspection, normal range of motion, No CVA tenderness, No vertebral tenderness Extremity Exam: normal inspection, normal range of motion Skin Exam: normal color, warm, dry Final Diagnosis/Problem List - Final Discharge Diagnosis/Problem (1) Type 2 diabetes mellitus Status: Chronic (2) Hypertension Status: Chronic Code(s): I10 - ESSENTIAL (PRIMARY) HYPERTENSION - Discharge Discharge Date: 10/09/21 Disposition: HOME HEALTH SERVICE Condition: Good Prescriptions: New Lactobacillus Acidophilus [Acidophilus TABLET] 1 tab PO TID 30 Days #90 tablet Metoprolol Tartrate 50 mg [Lopressor 50 MG] 50 mg PO BID 30 Days #60 tablet No Action Omeprazole 20 mg PO DAILY Metoprolol Tartrate 25 mg PO BID Metformin HCl [Metformin ER Osmotic] 1,000 mg PO BID Levothyroxine Sodium [Levothyroxine] 75 mcg PO DAILY Insulin Glargine,Hum.rec.anlog [Lantus] 23 units SQ QHS Fosinopril Sodium [Monopril] 30 mg PO DAILY Atorvastatin Calcium 20 mg PO DAILY Instructions: Osteomyelitis (DC) Additional Instructions: REMAIN NON-WEIGHTBEARING ON RIGHT LOWER EXTREMITY, USE KNEE SCOOTER AT HOME LEAVE DRESSING CLEAN DRY AND INTACT REFERRAL SENT TO [facility], THEY WILL MAKE CONTACT TO SET UP A VISIT. THEIR PHONE NUMBER IS [phone]( WHEN CALLING LET IT RING UNTIL THEY EVENTUALLY ANSWER, SOMETIMES IT TAKES A FEW MINS.) Follow up with: SAJI MAGANA DPM [ACTIVE STAFF] - 10/19/21 10:00 am GEOFFREY OROSCO NP [Primary Care Provider] - JOSELYN CARPENTER MD [ACTIVE STAFF] - 10/16/21 10:45 am
== END 2021-10-09 17:58 | disposition home health service (06) | DRG 617 ==
LOC: MED SURG 05:38 → EDSTATUS 11:38
PROVIDERS: ADMIT General Practice; ATTEND Podiatrist Foot & Ankle Surgery
PROC: 0Y6M0ZF Detachment at Right Foot, Partial 5th Ray, Open Approach (ICD-10-PCS; principal; 2021-10-03)
PROC: 0QBN0ZZ Excision of Right Metatarsal, Open Approach (ICD-10-PCS; 2021-10-06)
PROC: 0YQ Anatomical Regions, Lower Extremities, Repair (ICD-10-PCS; 2021-10-06)
PROC: 0KXS0ZZ Transfer Right Lower Leg Muscle, Open Approach (ICD-10-PCS; 2021-10-06)
PROC: 0JQQ0ZZ Repair Right Foot Subcutaneous Tissue and Fascia, Open Approach (ICD-10-PCS; 2021-10-06)
DX: E11.69 Type 2 diabetes mellitus with other specified complication (principal); M86.171 Other acute osteomyelitis, right ankle and foot; E11.621 Type 2 diabetes mellitus with foot ulcer; L97.509 Non-pressure chronic ulcer of other part of unspecified foot with unspecified severity; M79.671 Pain in right foot; I10 Essential (primary) hypertension; G62.9 Polyneuropathy, unspecified; Z20.828 Contact with and (suspected) exposure to other viral communicable diseases
CPT/HCPCS: 11044; 13160; 15738; 28810; 36415; 71045; 73630; 80053; 80202; 82565; 82947; 85025; 85610; 85652; 86140; 87046; 87070; 87075; 87116; 87205; 87206; 88311; 97110; 97161; 97165; 97530; 99024; U0003; 36573; 77001; 88304; J0360; J0690; J1650; J1817; J2001; A9270-GY; J3370